=== PATIENT | female | born 1955 | race Caucasian/White ===

== ENCOUNTER → 2019-10-07 12:40 | Outpatient (CLI) | payer OTHER, SELFPAY ==
[2019-10-07 13:49] LABS: Color, Urine Yellow (Yellow); Glucose, Dipstick Normal (Normal); Ketone-Dipstick Negative (Negative); Leukocyte Esterase-Dipstick Negative /ul (Negative); Nitrite-Dipstick Negative (Negative); Occult Blood-Urine Negative /ul (Negative); Protein-Dipstick Negative (Negative); Urine Bilirubin Dipstick Negative (Negative); Urine Clarity Clear (Clear); Urine Urobilinogen Normal (Normal)
[2019-10-07 14:07] LABS: Albumin, Serum 3.6 g/dL (3.2-5.0); BUN 14 mg/dL (7-18); BUN/Creat Ratio 11.4 RATIO (10-20); Calcium,Total 9.3 mg/dL (8.5-10.1); Chloride 96 mmol/L (98-107); Cholesterol 212 mg/dL (200); Creatinine, Serum 1.23 mg/dL (0.55-1.02); EST Glomerular Filtration Rate 47 mL/min (>60); Est Glom Filt Rate - Afr Amer 57 mL/min (>60); Glucose 93 mg/dL (74-106); High Density Lipoprotein 40 mg/dL; Magnesium 2.5 mg/dL (1.6-2.6); Phosphorus 2.3 mg/dL (2.5-4.9); Potassium 3.3 mmol/L (3.5-5.1); Sodium Level 137 mmol/L (136-145); Triglycerides 317 mg/dL; Very Low Density Lipoprotein 63 mg/dL (5-40)
== END ==
PROVIDERS: PCP Family Medicine; Referring Provider Internal Medicine Nephrology; Visit Provider Internal Medicine Nephrology
DX: N18.3 Chronic kidney disease, stage 3 (moderate) (principal); E83.42 Hypomagnesemia
CPT/HCPCS: 36415; 80061; 80069; 81002; 83735

== ENCOUNTER → 2019-10-11 10:00 | Outpatient (CLI) | payer OTHER, SELFPAY ==
[2019-10-11 10:56] LABS: (24 HR) Urine Calcium 191.7 mg/24 HR (42.0-353.0); 24HR UR TOTAL VOLUME 2700 ml; Calcium Urine pH Range 2; Urine Calcium (Random) 7.1 (Not Estab.)
== END ==
PROVIDERS: PCP Family Medicine; Referring Provider Internal Medicine Nephrology; Visit Provider Internal Medicine Nephrology
DX: N18.3 Chronic kidney disease, stage 3 (moderate) (principal); E83.42 Hypomagnesemia
CPT/HCPCS: 81050; 82340; 83735

== ENCOUNTER → 2019-10-12 10:02 | Outpatient (CLI) | payer OTHER, SELFPAY ==
[2019-10-12 10:29] LABS: 24Hr.Lytes Total Volume 3000 mL; Sodium 24 HR UR 108 mmol/24h (40-220); Urine Potassium 5.2 mmol/L (Not Establ.); Urine Potassium/ 24 Hours 15.6 mmol/24h (25-125); Urine Sodium 36 mmol/L (Not Establ.)
== END ==
PROVIDERS: PCP Family Medicine; Visit Provider Internal Medicine Nephrology
DX: N18.3 Chronic kidney disease, stage 3 (moderate) (principal); E83.42 Hypomagnesemia
CPT/HCPCS: 81050; 84133; 84300

== ENCOUNTER → 2019-10-28 09:52 | Outpatient (CLI) | payer OTHER, SELFPAY ==
--- NOTE | 2019-10-28 09:57 | BD_ITS ---
STUDY: DUAL ENERGY X-RAY ABSORPTIOMETRY / DXA REASON FOR EXAM: Female, 63 years old. Age of sweetie- 56. Pat is 85# and 61.5 and quot; a loss of 2.5 and quot; .Takes a thyroid med. Exercises a lot. Grandma has osteo. TECHNIQUE: Bone Mineral Density (BMD) measurements of lumbar spine and bilateral hips were obtained. COMPARISON: None. FINDINGS: Lumbar Spine (L1-L4): g/cm2 (0.669) / T-score (-4.3) / Z-score (-2.8) Findings are suggestive of osteoporosis with a high fracture risk. Left Femur Total: g/cm2 (0.569) / T-score (-3.5) / Z-score (-2.4) Left Femoral Neck: g/cm2 (0.571) / T-score (-3.4) / Z-score (-2.0) Right Femur Total: g/cm2 (0.581) / T-score (-3.4) / Z-score (-2.3) Right Femoral Neck: g/cm2 (0.547) / T-score (-3.5) / Z-score (-2.2) BD/DXA BONE DENS W/VERT FX ASMT IMPRESSION: The patient is considered osteoporotic as outlined below according to World Rafael Organization (WHO) criteria with a high fracture risk. Reference Information: The T-score is the number of standard deviations above or below the standard which is normal for young adults at their peak bone mineral density. The World Health Organization (WHO) interprets the T-scores as follows: Above -1 Normal bone density Between -1 and -2.5 Osteopenia Equal to / or below -2.5 Osteoporosis As a practical clinical guideline, osteopenia may be graded as follows: Mild -1 through -1.5 Moderate -1.6 through -2.0 Severe -2.1 through -2.4 The Z-score is the number of standard deviations above or below age-matched controls. A Z-score of less than -1.5 would be considered abnormal. References: 1. NIH Osteoporosis and Related Bone Diseases http://www.osteo.org 2. International Society for Clinical Densitometry http://www.iscd.org 3. National Osteoporosis Foundation http://www.nof.org Electronically Signed: Zi Holland, at 15:49 EDT , Service support ,
== END ==
PROVIDERS: PCP Family Medicine; Referring Provider Family Medicine; Visit Provider Family Medicine
DX: N18.3 Chronic kidney disease, stage 3 (moderate) (principal); E03.9 Hypothyroidism, unspecified; R93.7 Abnormal findings on diagnostic imaging of other parts of musculoskeletal system
CPT/HCPCS: 77080; 77085

== ENCOUNTER 2020-01-04 06:23 | Day surgery (SDC) | payer OTHER, SELFPAY ==
[2019-12-16 08:16] VITALS: BMI 16.5
--- NOTE | 2019-12-16 08:39 | HP_ITS ---
Intake Vital Signs 12/16/19 Height 5 ft 1.5 in 12/16/19 Weight: 89 lb 12/16/19 BP 111/68 12/16/19 Blood Pressure Location Rt brachial 12/16/19 Position Sitting 12/16/19 Respiration 18 12/16/19 Pulse 71 12/16/19 Pulse Source Monitor 12/16/19 Temp 98.0 F 12/16/19 Temp Source Oral 12/16/19 Pulse Oximetry (%) 98 12/16/19 Oxygen Delivery Method room air Intake Visit Reasons: C-Scope Chief Complaint: Due for c-scope Cash Register Operator Required: No Accompanied by: Is patient in pain?: No Allergies triamcinolone [From Kenalog] Allergy (Intermediate, Verified 12/16/19 08:29) Rash strawberries Allergy (Intermediate, Uncoded 12/16/19 08:29) rash Medications calcium carbonate 600 mg(1,500 mg)-vitamin D3 800 unit chewable tablet 1 tab PO DAILY 12/16/19 [History Confirmed 12/16/19] plgwlsrlgbw-fohuzuubk-Qp-amur 375 mg-150 mg-150 mg-125 mg tablet 2 tab PO DAILY tab 12/16/19 [History] magnesium 250 mg tablet 250 mg PO DAILY 12/16/19 [History Confirmed 12/16/19] potassium chloride 10 mEq tablet,extended release 10 meq PO BID 12/16/19 [History Confirmed 12/16/19] thyroid (pork) 30 mg tablet 30 mg PO .qod tab 12/16/19 [History Confirmed 12/16/19] thyroid (pork) 60 mg tablet 60 mg PO .qod tab 12/16/19 [History Confirmed 12/16/19] [facility] Medical History (Updated 12/16/19 @ 08:[address] Humble Cruz MD) Personal history of colonic polyps (Acute) Carpal tunnel syndrome (Acute) Hypothyroidism (Acute) Chronic renal disease, stage 3, moderately decreased glomerular filtration rate (GFR) between 30-59 mL/min/1.73 square meter (Chronic) Surgical History (Updated 12/16/19 @ 08:03 by Nellie Castillo) history bilateral carpal tunnel surgery (Acute) Family History (Updated 12/16/19 @ 08:04 by Nellie Castillo) Mother Heart disease Hypertension Diabetes Father CVA (cerebral vascular accident) Diabetes Grandmother Arthritis Heart disease Uncle Cancer liver cancer Aunt Breast cancer Cancer ovarian cancer Social History (Updated 12/16/19 @ 08:[address] Humble Cruz MD) Smoking Status: Never smoker alcohol intake: never substance use type: does not use HPI HPI HPI: LUIS FORBES, is a 64 F who presents to the office today for HPI HPI Surgical H&P: Yes HPI: LUIS FORBES, is a 64 F who presents to the office today for surgical consultation regarding a colonoscopy. The patient is referred by her primary care physician Dr. Sade Monsalve. A written copy of my surgical consult recommendations will be returned to her. The patient's most recent colonoscopy was performed at [facility] on June 05, 2017. Tubular adenoma was resected at 70 cm. Tubular adenoma from the cecum. Tubulovillous adenoma at 45 cm. It was recommended the patient that she have a follow-up scope in 3 years. In the meantime however she was seen by nephrology. They are concerned about her stage III renal insufficiency. They are concerned that there may be a correlation with her bowel disease and kidney disease. They are requesting that she pursue the colonoscopy at this time. ROS General General: No weight change, appetite, fatigue, colon cancer, breast cancer or weakness HEENT HEENT: No difficulty swallowing, eye injury, eye surgery, swollen glands or hoarseness Endo Endocrine: Yes thyroid disease; no diabetes mellitus, thyroid cancer, Hair loss, heat intolerance or cold intolerance Skin Skin: No rash or changing moles Breast Breast: No left breast lump, right breast lump, nipple discharge, breast pain, abnormal mammogram, abnormal US or breast enlargement Musc Musculoskeletal: No back problems, arthritis, rheumatoid arthritis, gout or joint pain Cardio Cardiovascular: No murmur, pacemaker, heart disease, atrial fibrillation, high blood pressure, heart attack, heart stent, palpitations, shortness of breat with exertion or chest pain Psych Psychiatric: No depression, anxiety or hearing voices Resp Respiratory: No shortness of breath, No sleep apnea, No cough, No COPD, No asthma, No emphysema, No wheezing Gastro Gastrointestinal: No abdominal pain, No nausea or vomiting, No diarrhea, No constipation, No blood in stool, No acid reflux, Yes hemorrhoids, No ulcers, No gallbladder problem, No black,tarry stools Nabeel Hematologic: No blood thinners, No blood disorders, No bleeding, No anemia, No blood clots Neuro Neurologic: No system reviewed and no additional complaints, except as docu, No as per HPI, No abnormal walking, No abnormal hearing, No abnormal movements, No abnormal speech, No behavioral changes, No burning sensations, No confusion, No seizure-like activity, No unsteadiness, No dizziness, No localized weakness, No frequent falls, No headache(s), No lack of coordination, No loss of vision, No memory loss, No numbness, No other visual disturbances, No radiating pain, No restless legs, No sensory deficit, No fainting, No tingling, No tremor(s), No weakness, No other Exam Const General: cooperative, healthy appearing, comfortable Nutritional Appearance: underweight Orientation: alert, awake, oriented x3 HENMT Head: normal to inspection Eyes General: appearance normal, both eyes and all related structures Neck Neck: normal visual inspection Chest Breast Palpation: No nipple discharge Resp Effort & Inspection: normal respiratory effort Auscultation: clear to auscultation bilaterally Cardio Rate: regular rate Rhythm: regular rhythm Heart Sounds: no murmurs GI Palpation: soft, no hepatosplenomegaly Auscultation: normal bowel sounds Skin General: no rashes or lesions noted Neuro Cognition: normal cognition Extrem General: calf tenderness Psych Affect: normal affect Assessment & Plan Problems 1. Personal history of colonic polyps Z86.010 Plan 64-year-old female with a personal history of tubular adenomas x2 and a tubulovillous adenoma of the sigmoid. I recommend a colonoscopy with possible biopsy or polypectomy as indicated. She has stage III renal insufficiency and there is some concern by nephrology that the bowel and renal disease are connected. Her most recent colonoscopy was May 2017 however nephrology is requesting a updated exam. It is of note that she weighs 89 pounds with a BMI of 16.5. I anticipate using monitored anesthesia care. Humble Cruz M.D., F.A.C.S. Orders Orders: Colonoscopy Today Coding Level of Care Code 66150 Diagnoses Personal history of colonic polyps Z86.010 12/16/19 0859 <Electronically signed by Humble gasca MD> Date _ Humble Cruz MD
[2020-01-04] VITALS (7 sets, daily range): BP systolic 91–101; BP diastolic 54–68; PULSE 57–63; RESP 15–16; TEMP 36.1–36.4; O2SAT 98–100; BMI 15.3
[2020-01-04] MEDS: Lactated Ringers 1,000 ML 100 ML IV (07:03)
--- NOTE | 2020-01-04 07:08 | PCM.HP.BLA ---
Problem List (1) Personal history of colonic polyps Status: Acute History and Physical Date of Admission: 01/04/20 Intake Visit Reasons: C-Scope Chief Complaint: Due for c-scope Principal Clerk Required: No Accompanied by: Is patient in pain?: No Allergies triamcinolone [From Kenalog] Allergy (Intermediate, Verified 12/16/19 08:29) Rash strawberries Allergy (Intermediate, Uncoded 12/16/19 08:29) rash Medications calcium carbonate 600 mg(1,500 mg)-vitamin D3 800 unit chewable tablet 1 tab PO DAILY 12/16/19 [History Confirmed 12/16/19] gmuuabggkmw-luqbblpbo-Ts-amur 375 mg-150 mg-150 mg-125 mg tablet 2 tab PO DAILY tab 12/16/19 [History] magnesium 250 mg tablet 250 mg PO DAILY 12/16/19 [History Confirmed 12/16/19] potassium chloride 10 mEq tablet,extended release 10 meq PO BID 12/16/19 [History Confirmed 12/16/19] thyroid (pork) 30 mg tablet 30 mg PO .qod tab 12/16/19 [History Confirmed 12/16/19] thyroid (pork) 60 mg tablet 60 mg PO .qod tab 12/16/19 [History Confirmed 12/16/19] PFSH Medical History (Updated 12/16/19 @ 08:[address] Humble Cruz MD) Personal history of colonic polyps (Acute) Carpal tunnel syndrome (Acute) Hypothyroidism (Acute) Chronic renal disease, stage 3, moderately decreased glomerular filtration rate (GFR) between 30-59 mL/min/1.73 square meter (Chronic) Surgical History (Updated 12/16/19 @ 08:03 by Nellie Castillo) history bilateral carpal tunnel surgery (Acute) Family History (Updated 12/16/19 @ 08:04 by Nellie Castillo) Mother Heart disease Hypertension Diabetes Father CVA (cerebral vascular accident) Diabetes Grandmother Arthritis Heart disease Uncle Cancer liver cancer Aunt Breast cancer Cancer ovarian cancer Social History (Updated 12/16/19 @ 08:[address] Humble Cruz MD) Smoking Status: Never smoker alcohol intake: never substance use type: does not use HPI HPI HPI: LUIS FORBES, is a 64 F who presents to the office today for HPI HPI Surgical H&P: Yes HPI: LUIS FORBES, is a 64 F who presents to the office today for surgical consultation regarding a colonoscopy. The patient is referred by her primary care physician Dr. Sade Monsalve. A written copy of my surgical consult recommendations will be returned to her. The patient's most recent colonoscopy was performed at [facility] on June 05, 2017. Tubular adenoma was resected at 70 cm. Tubular adenoma from the cecum. Tubulovillous adenoma at 45 cm. It was recommended the patient that she have a follow-up scope in 3 years. In the meantime however she was seen by nephrology. They are concerned about her stage III renal insufficiency. They are concerned that there may be a correlation with her bowel disease and kidney disease. They are requesting that she pursue the colonoscopy at this time. ROS General General: No weight change, appetite, fatigue, colon cancer, breast cancer or weakness HEENT HEENT: No difficulty swallowing, eye injury, eye surgery, swollen glands or hoarseness Endo Endocrine: Yes thyroid disease; no diabetes mellitus, thyroid cancer, Hair loss, heat intolerance or cold intolerance Skin Skin: No rash or changing moles Breast Breast: No left breast lump, right breast lump, nipple discharge, breast pain, abnormal mammogram, abnormal US or breast enlargement Musc Musculoskeletal: No back problems, arthritis, rheumatoid arthritis, gout or joint pain Cardio Cardiovascular: No murmur, pacemaker, heart disease, atrial fibrillation, high blood pressure, heart attack, heart stent, palpitations, shortness of breat with exertion or chest pain Psych Psychiatric: No depression, anxiety or hearing voices Resp Respiratory: No shortness of breath, No sleep apnea, No cough, No COPD, No asthma, No emphysema, No wheezing Gastro Gastrointestinal: No abdominal pain, No nausea or vomiting, No diarrhea, No constipation, No blood in stool, No acid reflux, Yes hemorrhoids, No ulcers, No gallbladder problem, No black,tarry stools Nabeel Hematologic: No blood thinners, No blood disorders, No bleeding, No anemia, No blood clots Neuro Neurologic: No system reviewed and no additional complaints, except as docu, No as per HPI, No abnormal walking, No abnormal hearing, No abnormal movements, No abnormal speech, No behavioral changes, No burning sensations, No confusion, No seizure-like activity, No unsteadiness, No dizziness, No localized weakness, No frequent falls, No headache(s), No lack of coordination, No loss of vision, No memory loss, No numbness, No other visual disturbances, No radiating pain, No restless legs, No sensory deficit, No fainting, No tingling, No tremor(s), No weakness, No other Exam Const General: cooperative, healthy appearing, comfortable Nutritional Appearance: underweight Orientation: alert, awake, oriented x3 HENMT Head: normal to inspection Eyes General: appearance normal, both eyes and all related structures Neck Neck: normal visual inspection Chest Breast Palpation: No nipple discharge Resp Effort & Inspection: normal respiratory effort Auscultation: clear to auscultation bilaterally Cardio Rate: regular rate Rhythm: regular rhythm Heart Sounds: no murmurs GI Palpation: soft, no hepatosplenomegaly Auscultation: normal bowel sounds Skin General: no rashes or lesions noted Neuro Cognition: normal cognition Extrem General: calf tenderness Psych Affect: normal affect Assessment & Plan Problems 1. Personal history of colonic polyps Z86.010 Plan 64-year-old female with a personal history of tubular adenomas x2 and a tubulovillous adenoma of the sigmoid. I recommend a colonoscopy with possible biopsy or polypectomy as indicated. She has stage III renal insufficiency and there is some concern by nephrology that the bowel and renal disease are connected. Her most recent colonoscopy was May 2017 however nephrology is requesting a updated exam. It is of note that she weighs 89 pounds with a BMI of 16.5. I anticipate using monitored anesthesia care. Humble Cruz M.D., F.A.C.S. Orders Orders: Colonoscopy Today Coding Level of Care Code 12285 Diagnoses Personal history of colonic polyps Z86.010 The patient presents during the COVID-19 pandemic. She is aware of the increased risk. She is aware that the [facility] suggest a low local incidence. I have re-examined the patient. There are no clinical changes since date of exam.
--- NOTE | 2020-01-04 09:30 | OP.COLON_ITS ---
Patient Name: Heidi Boston Procedure Date: 01/04/2020 7:32 AM Date of : 1955 Age: 64 Procedure: Colonoscopy Indications: High risk colon cancer surveillance: Personal history of colonic polyps Providers: Humble Cruz MD Medicines: See the Anesthesia note for documentation of the administered medications Patient Profile: Last Colonoscopy: May 2017. Complications: No immediate complications. Procedure: Pre-Anesthesia Assessment: - Prior to the procedure, a History and Physical was performed, and patient medications and allergies were reviewed. The patient's tolerance of previous anesthesia was also reviewed. The risks and benefits of the procedure and the sedation options and risks were discussed with the patient. All questions were answered, and informed consent was obtained. Prior Anticoagulants: The patient has taken no previous anticoagulant or antiplatelet agents. ASA Grade Assessment: II - A patient with mild systemic disease. After reviewing the risks and benefits, the patient was deemed in satisfactory condition to undergo the procedure. After I obtained informed consent, the scope was passed under direct vision. Throughout the procedure, the patient's blood pressure, pulse, and oxygen saturations were monitored continuously. The colonoscope was introduced through the anus and advanced to the cecum, identified by appendiceal orifice and ileocecal valve. The colonoscopy was performed without difficulty. The patient tolerated the procedure well. The quality of the bowel preparation was good. The ileocecal valve and the appendiceal orifice were photographed. Scope In: 7:42:02 AM Scope Withdrawal Time 0 hours 7 minutes 54 seconds Scope Out: 7:55:54 AM Total Procedure Duration Time 0 hours 13 minutes 52 seconds Findings: Hemorrhoids were found on perianal exam. A diffuse area of moderate melanosis was found in the entire colon. The exam was otherwise without abnormality. Impression: - Hemorrhoids found on perianal exam. - Melanosis in the colon. - The examination was otherwise normal. - No specimens collected. Recommendation: - Discharge patient to home. - Resume previous diet. - Continue present medications. - Repeat colonoscopy in 5 years for surveillance. Procedure Code(s): --- Professional --- 45410, Colonoscopy, flexible; diagnostic, including collection of specimen(s) by brushing or washing, when performed (separate procedure) Diagnosis Code(s): --- Professional --- Z86.010, Personal history of colonic polyps K64.9, Unspecified hemorrhoids K63.89, Other specified diseases of intestine CPT copyright 2017 [employer]. All rights reserved. The codes documented in this report are preliminary and upon hadoop developer review may be revised to meet current compliance requirements. Humble Cruz MD 01/04/2020 8:01:04 AM This report has been signed electronically. Number of Addenda: 0 Note Initiated On: 01/04/2020 7:32 AM
--- NOTE | 2020-01-04 09:31 | OP.CCLET_ITS ---
01/04/2020 Sade Monsalve [facility] [address] [place] [address] Re : Colonoscopy procedure for Heidi Boston Dear Dr. Monsalve This procedure was performed on Saturday, January 04, 2020. My impressions and recommendations are as follows: Impressions : - Hemorrhoids found on perianal exam. - Melanosis in the colon. - The examination was otherwise normal. - No specimens collected. Recommendations : - Discharge patient to home. - Resume previous diet. - Continue present medications. - Repeat colonoscopy in 5 years for surveillance. My findings are described in the full procedure note, which is enclosed. If I can be of further assistance, please feel free to contact me at Doctor phone number(s): Work: . Sincerely, Humble Cruz MD 01/04/2020 8:01:04 AM This report has been signed electronically.
== END 2020-01-04 08:43 | disposition home or self-care (01) ==
LOC: EN 06:24 → AC 06:25
PROVIDERS: PCP Family Medicine; Referring Provider Family Medicine; Visit Provider Surgery
PROC: 0DJD8ZZ Inspection of Lower Intestinal Tract, Via Natural or Artificial Opening Endoscopic (ICD-10-PCS; CPT 45378; principal; 2020-01-04 07:25)
DX: Z12.11 Encounter for screening for malignant neoplasm of colon (principal); Z86.010 Personal history of colon polyps; N18.3 Chronic kidney disease, stage 3 (moderate); K64.9 Unspecified hemorrhoids; K63.89 Other specified diseases of intestine; Z11.59 Encounter for screening for other viral diseases
CPT/HCPCS: 45378; 87635; G2023; J7120; J2405; U0004

== ENCOUNTER → 2020-01-10 09:22 | Outpatient (CLI) | payer OTHER, SELFPAY ==
[2020-01-04 06:51] VITALS: BMI 15.3
[2020-01-10 09:30] LABS: Bacteria 0 SEEN /hpf (None Seen); Mucous, Urine 0 SEEN /hpf (<or=2+); Red Blood Cells-Urine 0 SEEN /hpf (0-5); Squamous Epithelial Cells - UA 0 SEEN /hpf (5-10); White Blood Cells 0 SEEN /hpf (0-5)
[2020-01-10 10:21] LABS: Color, Urine Yellow (Yellow); Glucose, Dipstick Normal (Normal); Ketone-Dipstick Negative (Negative); Leukocyte Esterase-Dipstick Negative /ul (Negative); Nitrite-Dipstick Negative (Negative); Occult Blood-Urine Negative /ul (Negative); Protein-Dipstick Negative (Negative); Urine Bilirubin Dipstick Negative (Negative); Urine Clarity Clear (Clear); Urine Urobilinogen Normal (Normal)
[2020-01-10 10:33] LABS: Protein, Urine (Random) 7.5 mg/dL (<11.9); Protein:Creat Ratio 573 mg/g CRE (0-200)
[2020-01-10 11:05] LABS: 24 Hour Urine Protein 435.6 mg/24HR (<150 MG/24HR); 24HR. UA Prot. Total Volume 3325 mL; 24Hr.Lytes Total Volume 3325 mL; Anion Gap 6 (5-15); BUN 12 mg/dL (7-18); BUN/Creat Ratio 9.8 RATIO (10-20); Chloride 91 mmol/L (98-107); Creatinine, Serum 1.23 mg/dL (0.55-1.02); EST Glomerular Filtration Rate 47 mL/min (>60); Est Glom Filt Rate - Afr Amer 57 mL/min (>60); Glucose 90 mg/dL (74-106); Phosphorus 2.5 mg/dL (2.5-4.9); Potassium 3.1 mmol/L (3.5-5.1); Sodium Level 136 mmol/L (136-145); Urine Chloride 10 mmol/L (Not Establ.); Urine Chloride / 24 Hours 33 mmol/24h (110-250); Urine Potassium/ 24 Hours 39.9 mmol/24h (25-125); Urine Protein (24 Hour) 13.1 mg/dL (<11.9)
[2020-01-10 11:08] LABS: PTHIN 51.4 pg/mL (18.4-80.1)
[2020-01-10 11:30] LABS: 24HR UR TOTAL VOLUME 3325 ml; Calcium Urine pH Range 1; Urine Calcium (Random) < 5.0 (Not Estab.)
[2020-01-11 10:53] LABS: Creat.Clear Total Volume 3325 mL; Creatinine Clearance 31 ml/min (100-200); Creatinine Serum Creat 1.2 mg/dL (0.6-1.0); Creatinine Urine 16.3 mg/dL (NO RANGE EST.); EST Glomerular Filtration Rate 48 mL/min (>60); Est Glom Filt Rate - Afr Amer 48 mL/min (>60)
== END ==
PROVIDERS: PCP Family Medicine; Visit Provider Internal Medicine
DX: N18.3 Chronic kidney disease, stage 3 (moderate) (principal); E55.9 Vitamin D deficiency, unspecified
CPT/HCPCS: 36415; 80048; 81001; 81050; 82306; 82340; 82436; 82570; 82575; 83970; 84100; 84133; 84156

== ENCOUNTER → 2020-01-18 10:47 | Outpatient (CLI) | payer OTHER, SELFPAY ==
[2020-01-04 06:51] VITALS: BMI 15.3
[2020-01-18 12:36] LABS: Anion Gap 5 (5-15); BUN 11 mg/dL (7-18); BUN/Creat Ratio 9.5 RATIO (10-20); Calcium,Total 9.6 mg/dL (8.5-10.1); Chloride 99 mmol/L (98-107); Creatinine, Serum 1.16 mg/dL (0.55-1.02); EST Glomerular Filtration Rate 50 mL/min (>60); Est Glom Filt Rate - Afr Amer 61 mL/min (>60); Glucose 83 mg/dL (74-106); Potassium 3.9 mmol/L (3.5-5.1); Sodium Level 137 mmol/L (136-145)
== END ==
PROVIDERS: PCP Family Medicine; Referring Provider Internal Medicine; Visit Provider Internal Medicine
DX: E87.6 Hypokalemia (principal)
CPT/HCPCS: 36415; 80048

== ENCOUNTER → 2020-05-15 13:32 | Outpatient (CLI) | payer OTHER, SELFPAY ==
[2020-01-04 06:51] VITALS: BMI 15.3
[2020-05-15 13:38] LABS: Bacteria 0 SEEN /hpf (None Seen); Mucous, Urine 0 SEEN /hpf (<or=2+); Red Blood Cells-Urine 0 SEEN /hpf (0-5); Squamous Epithelial Cells - UA 0 SEEN /hpf (5-10); White Blood Cells 0 SEEN /hpf (0-5)
[2020-05-15 14:57] LABS: Color, Urine Yellow (Yellow); Glucose, Dipstick Normal (Normal); Ketone-Dipstick Negative (Negative); Leukocyte Esterase-Dipstick Negative /ul (Negative); Nitrite-Dipstick Negative (Negative); Occult Blood-Urine Negative /ul (Negative); Protein-Dipstick Negative (Negative); Urine Bilirubin Dipstick Negative (Negative); Urine Clarity Clear (Clear); Urine Urobilinogen Normal (Normal)
[2020-05-15 15:08] LABS: Protein, Urine (Random) 22.3 mg/dL (<11.9); Protein:Creat Ratio 331 mg/g CRE (0-200)
[2020-05-15 15:10] LABS: Anion Gap 2 (5-15); BUN 14 mg/dL (7-18); Calcium,Total 9.3 mg/dL (8.5-10.1); Chloride 101 mmol/L (98-107); Creatinine, Serum 1.27 mg/dL (0.55-1.02); EST Glomerular Filtration Rate 45 mL/min (>60); Est Glom Filt Rate - Afr Amer 55 mL/min (>60); Glucose 111 mg/dL (74-106); Magnesium 2.4 mg/dL (1.6-2.6); Phosphorus 2.3 mg/dL (2.5-4.9); Potassium 4.2 mmol/L (3.5-5.1); Sodium Level 137 mmol/L (136-145)
[2020-05-17 08:05] LABS: PTHIN 110.1 pg/mL (18.4-80.1)
[2020-05-17 08:15] LABS: Vitamin D,25 Hydroxy 43.4 ng/mL
== END ==
PROVIDERS: PCP Family Medicine; Referring Provider Internal Medicine; Visit Provider Internal Medicine
DX: N18.30 Chronic kidney disease, stage 3 unspecified (principal); E55.9 Vitamin D deficiency, unspecified; R80.9 Proteinuria, unspecified
CPT/HCPCS: 36415; 80048; 81001; 82306; 82570; 83735; 83970; 84100; 84156; 84165; 84166

== ENCOUNTER → 2020-11-15 11:34 | Outpatient (CLI) | payer OTHER, SELFPAY ==
[2020-01-04 06:51] VITALS: BMI 15.3
[2020-11-15 12:47] LABS: PTHIN 26.8 pg/mL (18.4-80.1)
[2020-11-15 13:03] LABS: Protein, Urine (Random) 26.6 mg/dL (<11.9); Protein:Creat Ratio 1204 mg/g CRE (0-200)
[2020-11-15 13:08] LABS: BUN 22 mg/dL (7-18); BUN/Creat Ratio 10.3 RATIO (10-20); Calcium,Total 12.6 mg/dL (8.5-10.1); Carbon Dioxide > 45.0 mmol/L (21.0-32.0); Chloride 82 mmol/L (98-107); Creatinine, Serum 2.14 mg/dL (0.55-1.02); EST Glomerular Filtration Rate 25 mL/min (>60); Est Glom Filt Rate - Afr Amer 30 mL/min (>60); Glucose 84 mg/dL (74-106); Magnesium 2.6 mg/dL (1.6-2.6); Phosphorus 2.7 mg/dL (2.5-4.9); Potassium 3.4 mmol/L (3.5-5.1); Sodium Level 132 mmol/L (136-145)
[2020-11-15 13:09] LABS: Color, Urine Straw (Yellow); Glucose, Dipstick Normal (Normal); Ketone-Dipstick Negative (Negative); Leukocyte Esterase-Dipstick 25 /ul (Negative); Nitrite-Dipstick Negative (Negative); Occult Blood-Urine Negative /ul (Negative); Protein-Dipstick Negative (Negative); Urine Bilirubin Dipstick Negative (Negative); Urine Clarity Clear (Clear); Urine Urobilinogen Normal (Normal)
[2020-11-17 16:08] LABS: PROELU- Alpha-1-Globulin,Ur 6.7 % (.); PROELU- Alpha-2-Globulin,Ur 24.1 % (.); PROELU- Beta Globulin, Ur 31.2 % (.); Total Protein, Ur 11.4 mg/dL (Not Estab.)
== END ==
PROVIDERS: PCP Family Medicine; Visit Provider Internal Medicine
DX: N18.30 Chronic kidney disease, stage 3 unspecified (principal); E83.42 Hypomagnesemia
CPT/HCPCS: 36415; 80048; 81002; 82570; 83735; 83970; 84100; 84156; 84166

== ENCOUNTER 2020-11-16 15:33 | Observation (INO) | payer OTHER, SELFPAY ==
[2020-01-04 06:51] VITALS: BMI 15.3
[2020-11-16 15:35] VITALS: BP 108/51; PULSE 77; RESP 16; TEMP 36.3; O2SAT 100; BMI 13.7
--- NOTE | 2020-11-16 16:36 | EKG12_ITS ---
Test Reason : ABNORMAL LABS Blood Pressure : / mmHG Vent. Rate : 069 BPM Atrial Rate : 069 BPM P-R Int : 200 ms QRS Dur : 090 ms QT Int : 392 ms P-R-T Axes : 088 008 068 degrees QTc Int : 420 ms Normal sinus rhythm Normal ECG Confirmed by MARY GUERIN, NGUYEN ([id number]), copy editor TRELL MONSON ([id number]) on 11/20/2020 2:17:07 PM Referred By: VLADISLAV Confirmed By:NGUYEN HERNANDEZ MD
--- NOTE | 2020-11-16 17:09 | ED.DCSUM_ITS ---
- ER Visit Summary Date of Service: 11/16/20 Chief Complaint: Abnormal labs History of Present Illness: The patient is a 64 F who presents with abnormal labs that were noticed today. Patient had labs drawn yesterday. Patient states her bacteriologist industrial called her today and stated that her calcium and CO2 were very high. Patient states that she was told she needed to come to the emergency department for fluids. Patient denies any symptoms. Patient denies any chest pain or palpitations. Patient denies any shortness of breath cough. Patient denies any nausea or vomiting. Patient denies any myalgias or weakness. Physical Examination: Vital signs are stable. Patient is afebrile. Patient is in no acute distress. Oral mucosa is pink and moist. Neck is supple. Trachea is midline. There is no JVD noted. Heart was regular rate and rhythm. Lungs are clear and equal bilaterally. Abdomen is soft. Bowel sounds are normal. There is no tenderness. There is no rebound or guarding noted. Skin is warm dry. Cranial nerves II through XII are intact. There are no focal motor or sensory deficits noted. Extremities are intact. There is no calf tenderness or edema. Test Results: CBC shows a slight anemia with a hemoglobin of 11.6 hematocrit 34.6. Basic metabolic profile showed a sodium 131, potassium 2.7, chloride 86, CO2 greater than 45, BUN 23, creatinine 2.07, and calcium 12.4. Creatinine was elevated from previous results. Urinalysis does not show any evidence of urinary tract infection. Emergency Department Course and Treatment: Patient was given IV fluids. Patient was given a dose of oral potassium and IV potassium. Case was discussed with the hospitalist. She will admit the patient to her service. Patient and family understood and were agreeable with plan. All questions were answered. Disposition: Admit to hospital Impression: 1. Acute kidney injury 2. Hypokalemia 3. Hypercalcemia This note was generated with [employer] dictation software. It may contain incorrect words, spelling, and punctuation that were not noted in review of the chart prior to signing ED Disposition - Plan for ED Patient: [facility] Diagnosis: Acute kidney injury, Hypokalemia, Hypercalcemia
[2020-11-16 17:26] LABS: Bacteria 0 SEEN /hpf (None Seen); Mucous, Urine 0 SEEN /hpf (<or=2+); Red Blood Cells-Urine 0 SEEN /hpf (0-5); Squamous Epithelial Cells - UA 0 SEEN /hpf (5-10); White Blood Cells 0 SEEN /hpf (0-5)
[2020-11-16 17:30] LABS: Absolute Lymphocyte Count 1.14 X10^3/uL (0.83-4.51); Absolute Neutrophil Count 2.6 X10^3/uL (2.0-7.7); Basophil# 0.03 X10^3/uL; Basophil% 0.7 % (0-1); Eosinophil# 0.11 X10^3/uL; Eosinophils% 2.5 % (0-5); Hematocrit 34.6 % (37-47); Hemoglobin 11.6 g/dL (12.0-15.0); Lymphocyte # 1.14 X10^3/ul (4.0); Mean Corp Hgb Conc 33.5 g/dL (32-36); Mean Corpuscular Hgb 32.2 pg (27.0-32.0); Mean Corpuscular Volume 96.1 fL (81-99); Mean Platelet Vol. 10.1 fl (6.2-12.0); Monocyte# 0.48 X10^3/uL; Monocyte% 10.9 % (0-10); NRBC Flagged by Analyzer 0 % (0-5); Neutrophil # 2.62 X10^3/uL (2.7-7.7); Neutrophil % 59.7 % (47-70); Platelet Count 213 K/mm3 (150-450); RBC Distribution Width CV 13.2 % (11.6-14.6); RBC Distribution Width SD 46.1 fl (35.1-43.9); White Blood Count 4.4 K/mm3 (4.4-11.0)
[2020-11-16 17:33] LABS: Color, Urine Straw (Yellow); Glucose, Dipstick Normal (Normal); Ketone-Dipstick Negative (Negative); Leukocyte Esterase-Dipstick Negative /ul (Negative); Nitrite-Dipstick Negative (Negative); Occult Blood-Urine Negative /ul (Negative); Protein-Dipstick Negative (Negative); Urine Bilirubin Dipstick Negative (Negative); Urine Clarity Clear (Clear); Urine Urobilinogen Normal (Normal)
[2020-11-16 18:12] LABS: BUN 23 mg/dL (7-18); BUN/Creat Ratio 11.1 RATIO (10-20); Calcium,Total 12.4 mg/dL (8.5-10.1); Carbon Dioxide > 45.0 mmol/L (21.0-32.0); Chloride 86 mmol/L (98-107); Creatinine, Serum 2.07 mg/dL (0.55-1.02); EST Glomerular Filtration Rate 26 mL/min (>60); Est Glom Filt Rate - Afr Amer 31 mL/min (>60); Estimated Creatinine Clearance 15.94 ml/min; Glucose 81 mg/dL (74-106); Potassium 2.7 mmol/L (3.5-5.1); Sodium Level 131 mmol/L (136-145)
--- NOTE | 2020-11-16 18:43 | HP.PCM_ITS ---
Problem List (1) NATHANIEL (acute kidney injury) Status: Acute (2) Electrolyte disturbance Status: Acute (3) Hypothyroidism Status: Chronic Qualifiers: Hypothyroidism type: unspecified Qualified Code(s): E03.9 - Hypothyroidism, unspecified (4) Severe protein-calorie malnutrition Status: Chronic (5) Chronic kidney disease, stage III (moderate) Status: Chronic Qualifiers: Chronic kidney disease stage 3 subtype: unspecified whether 3a or 3b Qualified Code(s): N18.30 - Chronic kidney disease, stage 3 unspecified History of Present Illness Date of Admission: 11/16/20 Chief Complaint: Abnormal labs The patient is a 64 y/o F w/ PMHx: CKD stage III, Hypothyroidism, Severe Protein-Calorie Malnutrition who presents to the [facility] ED on 11/16/20 with history of abnormal outpatient labs, specifically CO2 and calcium with recommendation per her PCP to be evaluated in the ED. patient denies any recent specific fever, chills, nausea, emesis, abdominal pain, chest pain, dyspnea. She does note routinely being very fatigued but this is unchanged. She does report that she has been losing weight in July. She had been drinking ensures but has lessened her intake of these per discussion with her spouse as well. Her spouse reports she is an extremely picky eater and always has been. He notes she is always been thin but never as thin as currently. She notes that recent labs done the day prior to ED presentation were for routine work-up per her hyperion essbase developer. Work-up in the ED included T 97.3, heart rate 77, BP 108/51, respiratory rate 16, 100% on room air, CBC with WBC 4.4, hemoglobin 11.6, platelet 213 without marked shift, BMP with sodium 131, potassium 2.7, chloride 86, carbon oxide greater than 45, BUN/creatinine 23/2.07, calcium 12.4, urinalysis not marked appearing. Past Medical History Past Medical History (Chronic Problems): Chronic Problems (Last Updated 12/16/19 @ 08:02 by Nellie Castillo) Hypothyroidism (Chronic) Severe protein-calorie malnutrition (Chronic) Chronic kidney disease, stage III (moderate) (Chronic) Medical History: Medical History (Last Updated 12/16/19 @ 08:02 by Nellie Castillo) Personal history of colonic polyps (Acute) Z86.010 Carpal tunnel syndrome G56.00 Hypothyroidism E03.9 Chronic renal disease, stage 3, moderately decreased glomerular filtration rate (GFR) between 30-59 mL/min/1.73 square meter N18.3 Allergies chocolate flavor Allergy (Intermediate, Verified 11/16/20 15:37) Mucosal lesions EYELIDS W/ CYSTS AND FILL W/ MUCOUS triamcinolone [From Kenalog] Allergy (Intermediate, Verified 11/16/20 15:37) Rash strawberries Allergy (Intermediate, Uncoded 11/16/20 15:37) rash Home Medications: Ambulatory Orders Medication Instructions Recorded magnesium 250 mg tablet 250 mg PO DAILY 12/16/19 potassium chloride 10 mEq 20 meq PO DAILY 12/16/19 tablet,extended release Alendronate Sodium [Fosamax] 70 mg PO TH@0700 12/28/19 Glucosamine/MSM/Chondroitin A 2 tablet PO BID 11/16/20 [[id number]-YJL Cplt] Potassium Chloride [Klor-Con M10] 10 meq PO DAILY 11/16/20 Thyroid,Pork [[place] Thyroid] 30 mg PO QODAY 11/16/20 Thyroid,Pork [[place] Thyroid] 60 mg PO QODAY 11/16/20 Surgical History: Surgical History (Last Updated 12/16/19 @ 08:03 by Nellie Castillo) history bilateral carpal tunnel surgery Surgical History: - - Colonic polyp resection, bilateral carpal tunnel surgery, tonsillectomy. Psychiatric History: No pertinent psych hx - Patient denies depression or anxiety but upon evaluation does appear to have a significantly flat affect. 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 Lives: Spouse/ Significant Other Smoking Status: Never smoker Tobacco Use: Non-smoker Alcohol: None Drugs: None - *Family History Maternal Family History: Family History (Last Updated 12/16/19 @ 08:04 by Nellie Castillo) Mother Heart disease Hypertension Diabetes Father CVA (cerebral vascular accident) Diabetes Grandmother Arthritis Heart disease Uncle Cancer Aunt Breast cancer Cancer History Items: Diabetes, High Cholesterol, Hypertension Paternal Family History: Family History (Last Updated 12/16/19 @ 08:04 by Nellie Castillo) Mother Heart disease Hypertension Diabetes Father CVA (cerebral vascular accident) Diabetes Grandmother Arthritis Heart disease Uncle Cancer Aunt Breast cancer Cancer History Items: Diabetes, High Cholesterol, Hypertension, Stroke Review of Systems Constitutional: Reports: Anorexia, Malaise, Weakness, Fatigue. Denies: Chills, Fever, Weight Change HEENT: Denies: Head Aches, Sinus Congestion, Sinus Drainage Cardiovascular: Denies: Chest Pain, Palpitations Respiratory: Denies: Cough, Shortness of Breath, Shortness of breath at rest, Shortness of breath upon exertion, Sputum production Gastrointestinal: Denies: Abdominal Pain, Nausea, Vomiting Genitourinary: Denies: Dysuria Musculoskeletal: Reports: Joint Pain. Denies: Joint Tenderness Skin: Denies: Rash, Wounds Neurological: Denies: Numbness, Tingling, Focal weakness Psychiatric: Denies: Anxiety, Depression, Homicidal Ideations, Suicidal Ideations Hematologic/ Lymphatic: Denies: Easy Bruising, Easy Bleeding VTE Information - Inpt Only VTE Present on Admission: No VTE Mechan Device Prophylaxis: SCD's VTE Pharm Prophylaxis ordered?: Yes Patient Problems: Active and Suspected Problems (Last Updated 12/16/19 @ 08:02 by Nellie Castillo) NATHANIEL (acute kidney injury) (Acute) Electrolyte disturbance (Acute) Subjective: Patient seated upright in the ED bed, fatigued appearing, extremely flat affect, no acute complaints. Objective: Physical Examination: General: awake, alert, oriented x 3 and cooperative, seated upright in the ED bed in no apparent distress. Skin: normal color, turgor, no icterus, cyanosis. HEENT: AT/NC, EOMI, PERRLA, dry MM, no carotid bruits or JVD noted. Lungs: Diminished breath sounds, greater bases, moderate effort, no rales, ronchi or wheezing. Heart: Regular rate and rhythm; no gallop, rub audible. Abdomen: soft, thin cachectic habitus, NTTP, ND, normal BS, no HSM. Extremities: no cyanosis, clubbing, or edema. Neurological: patient awake, alert, oriented as noted; cognitive function intact per spouse; pupils equally reactive to light and accomodation; cranial nerves II-XII grossly normal, moving all 4 extremities, no focal deficits, strength preserved. Psychiatric: affect appears extremely flat, do suspect possibly underlying depression, denies any current depression or anxiety feelings. - Physical Exam Vitals/I&O's: Vital Signs Temp Pulse Resp BP Pulse Ox 97.3 F L 77 16 108/51 L 100 11/16/20 15:35 11/16/20 15:35 11/16/20 15:35 11/16/20 15:35 11/16/20 15:35 Oxygen Delivery Method Room Air Weight: 80 lb Body Mass Index (BMI) 13.7 Laboratory Results 11/16/20 15:20: Urine Color Straw, Urine Clarity Clear, Urine pH 8.0, Ur Specific [place] 1.010, Urine Protein Negative, Urine Glucose (UA) Normal, Urine Ketones Negative, Urine Occult Blood Negative, Urine Nitrite Negative, Urine Bilirubin Negative, Urine Urobilinogen Normal, Ur Leukocyte Esterase Negative, Urine RBC 0 SEEN, Urine WBC 0 SEEN, Ur Squamous Epith Cells 0 SEEN, Urine Bacteria 0 SEEN, Urine Mucus 0 SEEN 11/16/20 17:13: WBC 4.4, RBC 3.60 L, Hgb 11.6 L, Hct 34.6 L, MCV 96.1, MCH 32.2 H, MCHC 33.5, RDW Std Deviation 46.1 H, RDW Coeff of Miguelito 13.2, Plt Count 213, MPV 10.1, Immature Gran % (Auto) 0.200, Neut % (Auto) 59.7, Lymph % (Auto) 26.0, [place] % (Auto) 10.9 H, Eos % (Auto) 2.5, Baso % (Auto) 0.7, Absolute Neuts (auto) 2.6, Absolute Lymphs (auto) 1.14, Nucleated RBC % 0 11/16/20 17:13: Sodium 131 L, Potassium 2.7 L*, Chloride 86 L, Carbon Dioxide > 45.0 H*, Anion Gap TNP, BUN 23 H, Creatinine 2.07 H, Estim Creat Clear Calc 15.94, Est GFR (MDRD) Af Amer 31 L, Est GFR (MDRD) Non-Af 26 L, BUN/Creatinine Ratio 11.1, Glucose 81, Calcium 12.4 H Current Medications Sodium Chloride () 1,000 mls @ 1,000 mls/hr IV .Q1H ONE Stop: 11/16/20 19:15 Potassium Chloride () 10 meq in 100 mls @ 100 mls/hr IV BOLUS X1 ONE Stop: 11/16/20 19:19 Assessment/Plan All Active Problems (Last Updated 12/16/19 @ 08:02 by Nellie S Castillo) NATHANIEL (acute kidney injury) (Acute) Electrolyte disturbance (Acute) Personal history of colonic polyps (Acute) The patient is a 64 y/o F w/ PMHx: CKD stage III, Hypothyroidism, Severe P rotein-Calorie Malnutrition who presents to the [facility] ED on 11/16/20 with history of abnormal outpatient labs, specifically CO2 and calcium with recommendation per her PCP to be evaluated in the ED. 1. Acute kidney injury on CKD stage III: Secondary to unclear specific etiology, possibly hypovolemia. Admission BUN/Cr 23/2.07, prior baseline creatinine noted to be 1.2 primarily with last noted lab 11/15/2020 with creatinine 2.14 causing PCP to refer patient for evaluation. Will hydrate, hold nephrotoxic medications and repeat chemistry in AM. Will obtain renal ultrasound as well as FeNa assessment. Will involve patient's hyperion essbase developer given significant electrolyte abnormalities. 2. Hyponatremia, mild: Admission sodium 131, suspect hypovolemic especially given NATHANIEL but as noted we will continue judicious hydration and obtain FeNa to further assess. 3. Hypokalemia: Admission K+ 2.7, magnesium level requested, supplementation given, repeat level in AM. 4. Hypercalcemia: Admission calcium 12.4 but in the setting of acute kidney injury, will obtain ionized calcium and plan repeat CMP in AM. Vitamin D pending. 5. Elevated carbon dioxide: Admission carbon oxide greater than 45, will obtain ABG, will continue treatment as noted above and plan repeat CMP in AM. Pending ABG may need to alter further treatment. 6. Suspected Chronic normocytic anemia: Admission hemoglobin 11.6, MCV 96.1, no comparison, will obtain iron panel, ferritin, vitamin B12 and folic acid levels. 7. Hypothyroidism: Continue home pork thyroid regimen, TSH and free T4 pending. 8. Severe protein calorie malnutrition: Evidenced by significantly reduced BMI, will consult nutrition for education and teaching. 9. DVT prophylaxis: SCDs, heparin. Inpatient E&M: 16693 Init Hosp L3
[2020-11-16] MEDS: Potassium Chloride Oral Tablet 20 MEQ 60 MEQ PO (18:45)
[2020-11-16] MEDS: 0.9% Normal Saline 1,000 ML 1000 ML IV (19:09)
[2020-11-16] MEDS: Potassium Chloride 10mEq/100mL 10 MEQ/100 ML IV.SOLN. 100 MEQ IV BOLUS (19:09)
[2020-11-16 19:14] VITALS: BP 114/67; PULSE 68; RESP 19; TEMP 36.9; O2SAT 100
[2020-11-16 19:38] VITALS: BMI 13.8
[2020-11-16 19:51] VITALS: BMI 13.9
[2020-11-16 20:02] VITALS: BP 111/75; PULSE 71; RESP 16; TEMP 36.8; O2SAT 100
[2020-11-16 20:15] LABS: Magnesium 2.8 mg/dL (1.6-2.6)
[2020-11-16] MEDS: 0.9% Normal Saline 1,000 ML 100 ML IV (20:25)
[2020-11-16 20:31] LABS: Allen Test Positive; Base Excess 15 mmol/L (-2 to +2); Bicarbonate 37.5 mmol/L (22-26); Blood Gas Specimen Type ART; O2 Delivery Device Room Air; PO2 76 mmHG (75-100); SITE L Radial; SO2 96 % (95-99); Total Carbon Dioxide 39 mmol/L; pH 7.51 (7.35-7.45)
[2020-11-16] MEDS: Heparin Injection (Vial) 5,000 UNIT/ML VIAL 5000 UNIT SC (20:38)
[2020-11-16 20:45] VITALS: PULSE 76
[2020-11-16] MEDS: Potassium Chloride Oral Tablet 10 MEQ PO (21:29)
[2020-11-16 22:30] LABS: Creatinine, Urine (random) < 13.00 mg/dL (NO RANGE EST.); Urine Sodium 28 mmol/L (Not Establ.)
[2020-11-17 00:21] VITALS: PULSE 60
[2020-11-17 03:00] VITALS: PULSE 57
[2020-11-17 03:03] VITALS: BP 100/58; PULSE 62; RESP 17; TEMP 36.6; O2SAT 95
[2020-11-17] MEDS: Potassium Chloride Oral Tablet 10 MEQ PO (05:53)
[2020-11-17] MEDS: Thyroid 15 MG Tablet 30 MG PO (05:54)
--- NOTE | 2020-11-17 05:55 | US_ITS ---
INDICATION: NATHANIEL EXAMINATION: US Kidney(s) complete (eg, kidneys and bladder) TECHNIQUE: Vázquez scale and color doppler images were obtained of the kidneys. COMPARISON: None. FINDINGS: RIGHT KIDNEY: Normal in size measuring 10 x 5.2 x 3.8 cm. Normal echogenicity. There is no hydronephrosis. No shadowing calculus or perinephric collection is demonstrated. 1.1 cm simple cyst in the right kidney. LEFT KIDNEY: Normal in size measuring 10.1 x 3.7 x 4.5 cm. Normal echogenicity. There is no hydronephrosis. No focal lesion or perinephric collection is demonstrated. 3 mm nonobstructing stone in left kidney. URINARY BLADDER: No acute abnormality. US/Kidney and Bladder IMPRESSION: No acute abnormalities. 3 mm non-obstructing stone in the left kidney. Electronically Signed: Edis Newby MD at 16:57 EDT Tel , Service support ,
[2020-11-17] MEDS: 0.9% Normal Saline 1,000 ML 100 ML IV (05:56)
[2020-11-17 06:46] LABS: Absolute Lymphocyte Count 1.32 X10^3/uL (0.83-4.51); Absolute Neutrophil Count 1.9 X10^3/uL (2.0-7.7); Basophil# 0.03 X10^3/uL; Basophil% 0.8 % (0-1); Eosinophil# 0.12 X10^3/uL; Eosinophils% 3.2 % (0-5); Hemoglobin 10.8 g/dL (12.0-15.0); Lymphocyte # 1.32 X10^3/ul (4.0); Lymphocyte % 35.3 % (19-41); Mean Corp Hgb Conc 32.7 g/dL (32-36); Mean Corpuscular Volume 97.6 fL (81-99); Mean Platelet Vol. 10.6 fl (6.2-12.0); Monocyte# 0.35 X10^3/uL; Monocyte% 9.4 % (0-10); NRBC Flagged by Analyzer 0 % (0-5); Neutrophil # 1.91 X10^3/uL (2.7-7.7); Platelet Count 203 K/mm3 (150-450); RBC Distribution Width CV 13.1 % (11.6-14.6); RBC Distribution Width SD 46.7 fl (35.1-43.9); Red Blood Count 3.38 M/mm3 (4.2-5.4); White Blood Count 3.7 K/mm3 (4.4-11.0)
[2020-11-17 07:25] LABS: ALB/GLOB Ratio 0.9 RATIO (0.9-2.4); AST(SGOT) 26 U/L (15-37); Alanine Aminotransfer ALT/SGPT 21 U/L (13-56); Albumin, Serum 2.8 g/dL (3.2-5.0); Alkaline Phosphatase 51 U/L (45-117); Anion Gap 1 (5-15); BUN 18 mg/dL (7-18); BUN/Creat Ratio 10.5 RATIO (10-20); Calcium,Total 9.9 mg/dL (8.5-10.1); Chloride 104 mmol/L (98-107); Creatinine, Serum 1.72 mg/dL (0.55-1.02); EST Glomerular Filtration Rate 32 mL/min (>60); Est Glom Filt Rate - Afr Amer 38 mL/min (>60); Estimated Creatinine Clearance 19.77 ml/min; Globulin 3.1 g/dL (2.2-4.2); Glucose 80 mg/dL (74-106); Potassium 3.8 mmol/L (3.5-5.1); Protein, Total 5.9 g/dL (6.4-8.2); Sodium Level 139 mmol/L (136-145)
[2020-11-17 07:50] VITALS: PULSE 62
[2020-11-17 08:43] VITALS: BP 103/55; PULSE 63; RESP 16; TEMP 36.6; O2SAT 97
[2020-11-17] MEDS: Magnesium Chloride 64 MG Delay Rel.Tablet PO (08:48)
[2020-11-17] MEDS: Heparin Injection (Vial) 5,000 UNIT/ML VIAL 5000 UNIT SC (08:48)
--- NOTE | 2020-11-17 08:59 | CON.PCM_ITS ---
Problem List (1) NATHANIEL (acute kidney injury) Status: Acute Consultation - Renal 11/17/20 PCP/ Referring MD: Requesting physician: [] Primary care physician: Dr. Sade Monsalve MD Reason for Consultation:: NATHANIEL hypokalemia - History of Present Illness History of Present Illness: The patient is a 64 year old F Who is seen in the office by my associate Dr. Handley. She has known history of CKD stage III with baseline creatinine around 1.2. Also has hyperkalemia, alkalosis, low normal normal blood pressures. She was not using any diuretics. Diagnosis was consistent with Gittelman syndrome. She takes potassium chloride 60 mEq daily. At some point in the past she was on salt tablets and spironolactone. She is no longer taking these. She also takes magnesium supplements 250 mg once a day. Routine blood work drawn yesterday showed hypokalemia, alkalosis, hypercalcemia, acute renal failure. She was sent to the emergency room. Overnight she has received IV fluids, potassium. Feels better today. - Allergies Allergies: Allergies chocolate flavor Allergy (Intermediate, Verified 11/16/20 15:37) Mucosal lesions EYELIDS W/ CYSTS AND FILL W/ MUCOUS triamcinolone [From Kenalog] Allergy (Intermediate, Verified 11/16/20 15:37) Rash strawberries Allergy (Intermediate, Uncoded 11/16/20 15:37) rash - Current Medications Current Medications: Current Medications Acetaminophen (Acetaminophen 325 Mg Tablet) 650 mg PO Q6H PRN PRN PRN Reason: Pain Score 1-10/Temp > 100.7 F Al Hydroxide/Mg Hydroxide (Mag Hydrox/Al Hydrox/Simeth 30 Ml Udc) 30 ml PO Q6H PRN PRN PRN Reason: Gastric Burning Albuterol Sulfate (Albuterol 2.5 Mg/3 Ml Vial.Neb.) 2.5 mg INHALATION Q2H PRN PRN PRN Reason: Dyspnea, wheezing Guaifenesin (Guaifenesin 10 Ml Udc (200mg/10ml)) 20 ml PO Q4H PRN PRN PRN Reason: COUGH Heparin Sodium (Porcine) (Heparin Injection (Vial) 5,000 Unit/Ml Vial) 5,000 unit SC Q12 ASIF Last Admin: 11/17/20 08:48 Dose: 5,000 unit Documented by: Hydralazine HCl (Hydralazine 20 Mg/Ml Vial) 10 mg IV Q4H PRN PRN PRN Reason: SBP > 160 Sodium Chloride () 1,000 mls @ 100 mls/hr IV .Q10H [facility] Last Admin: 11/17/20 05:56 Dose: 100 mls/hr Documented by: Magnesium Chloride (Magnesium Chloride 64 Mg Delay Rel.Tablet) 64 mg PO DAILY [facility] Last Admin: 11/17/20 08:48 Dose: 64 mg Documented by: Magnesium Hydroxide (Magnesium Hydroxide 30 Ml Udc) 30 ml PO DAILY PRN PRN PRN Reason: Constipation Melatonin (Melatonin 3 Mg Tablet) 3 mg PO QHS PRN PRN PRN Reason: INSOMNIA Nutritional Formula (Lactose Free) (Ensure Enlive 120 Ml Liquid) 120 ml PO 4X/DAY [facility] Last Admin: 11/17/20 08:47 Dose: Not Given Documented by: Ondansetron HCl (Ondansetron 4 Mg/2 Ml Vial) 4 mg IV Q8H PRN PRN PRN Reason: NAUSEA/VOMITING Potassium Chloride (Potassium Chloride Oral Tablet 10 Meq) 10 meq PO TID [facility] Last Admin: 11/17/20 05:53 Dose: 10 meq Documented by: Prochlorperazine Edisylate (Prochlorperazine 10 Mg/2 Ml Vial) 5 mg IV Q4H PRN PRN PRN Reason: Breakthrough nausea/vomiting Psyllium Hydrophilic Mucilloid (Psyllium 1 Packet) 1 packet PO DAILY PRN PRN PRN Reason: Constipation Senna/Docusate Sodium (Senna/Docusate Sodium 1 Tablet) 2 tablet PO BID PRN PRN PRN Reason: Constipation Sodium Chloride (0.9% Saline Lock 10 Ml Syringe) 10 - 40 ml IV UD PRN PRN Reason: SALINE FLUSH Throat Lozenges (Benzocaine/Menthol 1 Lozenge) 1 lozenge MUCOUS MEM Q2H PRN PRN PRN Reason: SORE THROAT Thyroid (Thyroid 60 Mg Tablet) 60 mg PO Q48H [facility] Thyroid (Thyroid 15 Mg Tablet) 30 mg PO Q48H [facility] Last Admin: 11/17/20 05:54 Dose: 30 mg Documented by: - Past Medical History Past Medical History (Chronic Problems): Chronic Problems (Last Updated 12/16/19 @ 08:02 by Nellie Castillo) Hypothyroidism (Chronic) Severe protein-calorie malnutrition (Chronic) Chronic kidney disease, stage III (moderate) (Chronic) - Past Surgical History Surgical History: - - Colonic polyp resection, bilateral carpal tunnel surgery, tonsillectomy. - Social History Smoking Status: Never smoker Alcohol: None Drugs: None - Family History Maternal Family History: Family History (Last Updated 12/16/19 @ 08:04 by Nellie Castillo) Mother Heart disease Hypertension Diabetes Father CVA (cerebral vascular accident) Diabetes Grandmother Arthritis Heart disease Uncle Cancer Aunt Breast cancer Cancer History Items: Diabetes, High Cholesterol, Hypertension Paternal Family History: Family History (Last Updated 12/16/19 @ 08:04 by Nellie Castillo) Mother Heart disease Hypertension Diabetes Father CVA (cerebral vascular accident) Diabetes Grandmother Arthritis Heart disease Uncle Cancer Aunt Breast cancer Cancer History Items: Diabetes, High Cholesterol, Hypertension, Stroke Review of Systems Constitutional: Denies: Chills, Fever, Weight Change HEENT: Denies: Head Aches, Sinus Congestion, Sinus Drainage Cardiovascular: Denies: Chest Pain, Palpitations Respiratory: Denies: Cough, Shortness of breath at rest, Sputum production Gastrointestinal: Denies: Abdominal Pain, Nausea, Vomiting Genitourinary: Denies: Dysuria Musculoskeletal: Denies: Joint Pain, Joint Tenderness Skin: Denies: Rash, Wounds Neurological: Denies: Numbness, Tingling, Focal weakness Psychiatric: Denies: Anxiety, Depression, Homicidal Ideations, Suicidal Ideations Hematologic/ Lymphatic: Denies: Easy Bruising, Easy Bleeding Patient Problems: Active and Suspected Problems (Last Updated 12/16/19 @ 08:02 by Nellie Castillo) NATHANIEL (acute kidney injury) (Acute) Electrolyte disturbance (Acute) Hypokalemia (Acute) Hypercalcemia (Acute) - Physical Exam Vitals/I&O's: Vital Signs Temp Pulse Resp BP Pulse Ox 97.9 F 63 16 103/55 L 97 11/17/20 08:43 11/17/20 08:43 11/17/20 08:43 11/17/20 08:43 11/17/20 08:43 Oxygen Delivery Method Room Air Weight: 37.4 kg Body Mass Index (BMI) 13.8 Intake and Output for Last 24 Hours 11/15/20 11/16/20 11/17/20 23:59 23:59 23:59 Intake Total 1600 / 1600 1851.67 / 1851.67 Output Total 600 / 600 Balance 1600 / 1600 1251.67 / 1251.67 General: Alert, Oriented x3, Cooperative HEENT: Atraumatic, PERRLA, EOMI, Normocephalic Neck: Supple, No JVD, Negative Carotid Bruits Lungs: Clear to auscultation, Normal air movement Cardiovascular: Regular rate, No murmurs Abdomen: Bowel Sounds Present, Soft, Non Tender Extremities: No edema, Capillary Refill Less than 3 Seconds Skin: No rashes, No breakdown Musculoskeletal: No Tenderness to Palpation of Joints or Extremities Neurological: Cranial nerves II-XII grossly intact Psych/Mental Status: Normal Affect, Appropriate Laboratory Results 11/16/20 15:20: Urine Color Straw, Urine Clarity Clear, Urine pH 8.0, Ur Specific [place] 1.010, Urine Protein Negative, Urine Glucose (UA) Normal, Urine Ketones Negative, Urine Occult Blood Negative, Urine Nitrite Negative, Urine Bilirubin Negative, Urine Urobilinogen Normal, Ur Leukocyte Esterase Negative, Urine RBC 0 SEEN, Urine WBC 0 SEEN, Ur Squamous Epith Cells 0 SEEN, Urine Bacteria 0 SEEN, Urine Mucus 0 SEEN 11/16/20 17:13: WBC 4.4, RBC 3.60 L, Hgb 11.6 L, Hct 34.6 L, MCV 96.1, MCH 32.2 H, MCHC 33.5, RDW Std Deviation 46.1 H, RDW Coeff of Miguelito 13.2, Plt Count 213, MPV 10.1, Immature Gran % (Auto) 0.200, Neut % (Auto) 59.7, Lymph % (Auto) 26.0, [place] % (Auto) 10.9 H, Eos % (Auto) 2.5, Baso % (Auto) 0.7, Absolute Neuts (auto) 2.6, Absolute Lymphs (auto) 1.14, Nucleated RBC % 0 11/16/20 17:13: Sodium 131 L, Potassium 2.7 L*, Chloride 86 L, Carbon Dioxide > 45.0 H*, Anion Gap TNP, BUN 23 H, Creatinine 2.07 H, Estim Creat Clear Calc 15.94, Est GFR (MDRD) Af Amer 31 L, Est GFR (MDRD) Non-Af 26 L, BUN/Creatinine Ratio 11.1, Glucose 81, Calcium 12.4 H 11/16/20 17:13: Magnesium 2.8 H 11/16/20 20:24: Specimen Type ART, Sample Site L Radial, pH 7.51 H, Bicarbonate Actual 37.5 H, Total CO2 39, Base Excess 15 H, O2 Saturation 96, ABG pCO2 47.0 H , ABG pO2 76, Venancio Test Positive, O2 Delivery Device Room Air 11/16/20 21:30: Ur Random Sodium 28, Urine Creatinine < 13.00 11/17/20 05:38: Ionized Calcium Pending 11/17/20 05:38: WBC 3.7 L, RBC 3.38 L, Hgb 10.8 L, Hct 33.0 L, MCV 97.6, MCH 32.0, MCHC 32.7, RDW Std Deviation 46.7 H, RDW Coeff of Miguelito 13.1, Plt Count 203, MPV 10.6, Immature Gran % (Auto) 0.300, Neut % (Auto) 51.0, Lymph % (Auto) 35.3, [place] % (Auto) 9.4, Eos % (Auto) 3.2, Baso % (Auto) 0.8, Absolute Neuts (auto) 1.9 L, Absolute Lymphs (auto) 1.32, Nucleated RBC % 0 11/17/20 05:38: Sodium 139, Potassium 3.8, Chloride 104, Carbon Dioxide 34.0 H, Anion Gap 1 L, BUN 18, Creatinine 1.72 H, Estim Creat Clear Calc 19.77, Est GFR (MDRD) Af Amer 38 L, Est GFR (MDRD) Non-Af 32 L, BUN/Creatinine Ratio 10.5, Glucose 80, Calcium 9.9, Total Bilirubin 0.30, AST 26, ALT 21, Alkaline Phosphatase 51, Total Protein 5.9 L, Albumin 2.8 L, Globulin 3.1, Albumin/Globulin Ratio 0.9 11/17/20 05:38: Vitamin D 25-Hydroxy Pending 11/17/20 05:38: Vit D 1,25-Dihydroxy Pending Current Medications Acetaminophen (Acetaminophen 325 Mg Tablet) 650 mg PO Q6H PRN PRN PRN Reason: Pain Score 1-10/Temp > 100.7 F Al Hydroxide/Mg Hydroxide (Mag Hydrox/Al Hydrox/Simeth 30 Ml Udc) 30 ml PO Q6H PRN PRN PRN Reason: Gastric Burning Albuterol Sulfate (Albuterol 2.5 Mg/3 Ml Vial.Neb.) 2.5 mg INHALATION Q2H PRN PRN PRN Reason: Dyspnea, wheezing Guaifenesin (Guaifenesin 10 Ml Udc (200mg/10ml)) 20 ml PO Q4H PRN PRN PRN Reason: COUGH Heparin Sodium (Porcine) (Heparin Injection (Vial) 5,000 Unit/Ml Vial) 5,000 unit SC Q12 [facility] Last Admin: 11/17/20 08:48 Dose: 5,000 unit Documented by: Hydralazine HCl (Hydralazine 20 Mg/Ml Vial) 10 mg IV Q4H PRN PRN PRN Reason: SBP > 160 Sodium Chloride () 1,000 mls @ 100 mls/hr IV .Q10H [facility] Last Admin: 11/17/20 05:56 Dose: 100 mls/hr Documented by: Magnesium Chloride (Magnesium Chloride 64 Mg Delay Rel.Tablet) 64 mg PO DAILY [facility] Last Admin: 11/17/20 08:48 Dose: 64 mg Documented by: Magnesium Hydroxide (Magnesium Hydroxide 30 Ml Udc) 30 ml PO DAILY PRN PRN PRN Reason: Constipation Melatonin (Melatonin 3 Mg Tablet) 3 mg PO QHS PRN PRN PRN Reason: INSOMNIA Nutritional Formula (Lactose Free) (Ensure Enlive 120 Ml Liquid) 120 ml PO 4X/DAY [facility] Last Admin: 11/17/20 08:47 Dose: Not Given Documented by: Ondansetron HCl (Ondansetron 4 Mg/2 Ml Vial) 4 mg IV Q8H PRN PRN PRN Reason: NAUSEA/VOMITING Potassium Chloride (Potassium Chloride Oral Tablet 10 Meq) 10 meq PO TID [facility] Last Admin: 11/17/20 05:53 Dose: 10 meq Documented by: Prochlorperazine Edisylate (Prochlorperazine 10 Mg/2 Ml Vial) 5 mg IV Q4H PRN PRN PRN Reason: Breakthrough nausea/vomiting Psyllium Hydrophilic Mucilloid (Psyllium 1 Packet) 1 packet PO DAILY PRN PRN PRN Reason: Constipation Senna/Docusate Sodium (Senna/Docusate Sodium 1 Tablet) 2 tablet PO BID PRN PRN PRN Reason: Constipation Sodium Chloride (0.9% Saline Lock 10 Ml Syringe) 10 - 40 ml IV UD PRN PRN Reason: SALINE FLUSH Throat Lozenges (Benzocaine/Menthol 1 Lozenge) 1 lozenge MUCOUS MEM Q2H PRN PRN PRN Reason: SORE THROAT Thyroid (Thyroid 60 Mg Tablet) 60 mg PO Q48H ASIF Thyroid (Thyroid 15 Mg Tablet) 30 mg PO Q48H ASIF Last Admin: 11/17/20 05:54 Dose: 30 mg Documented by: Assessment/Plan All Active Problems (Last Updated 12/16/19 @ 08:02 by Nellie Castillo) NATHANIEL (acute kidney injury) (Acute) Electrolyte disturbance (Acute) Hypokalemia (Acute) Hypercalcemia (Acute) Personal history of colonic polyps (Acute) acute renal failure CKD stage IIIa Likely related to volume depletion. With fluids alone creatinine is better. Renal ultrasound done this morning. We will follow up on the results. Hypokalemia Hypomagnesemia Alkalosis. Secondary to Gittelman syndrome. Potassium is better today. Alkalosis is better as well Hypercalcemia. Typically alkalosis causes low calcium. Not sure why she had high calcium. Better today She usually takes coated potassium pills which she thinks is not absorbing. She received regular potassium chloride pills here and inks she is absorbing these better. Will switch of this prescription to uncoated potassium chloride
[2020-11-17 09:11] LABS: Vitamin D,25 Hydroxy 41.8 ng/mL
--- NOTE | 2020-11-17 10:40 | CASEMGMT ---
RN CM MATHEMATICAL PHYSICIST CM to room to meet with patient for initial transition planning/care coordination assessment. RN KENYA introduced self and role at [facility]. Pt voices understanding and consents to assessment at this time. Pt resting in bed in no distress at this time. , Jair, @ bedside. Pt is A/O at this time and answers all questions appropriately. Care providers, pharmacy, and demographics verified/updated at this time. PCP: Dr Monsalve Specialists: Dr Handley--nephrology. Has an appt next week on 11/22. Preferred Pharmacy: [facility] Retail Insurance: MMO Prescription Benefit: yes. States has a $7,000 deductible. Living Will/HPOA: Has both LW and Healthcare POA, who is her , Jair LNOK: Jair Living Arrangements: Lives w/ in 2-story home. Bathroom and bedroom on 2nd floor. 1/2 bath on 1st floor. States able to navigate the stairs well. Independent. Transportation: Pt states drives self and states no transportation concerns at this time. also drives and usually does most of the driving. DME: States has the following DME: BP machine, pulse ox Pt states no need for further DME at this time. HHC/SNF: No history of either. Pt wishes to return home and states has no concerns with going home at time of discharge. CM to follow for any discharge planning/needs. Pt voices no further concerns/needs at this time. Advised pt to ask for CM if any further questions/concerns/needs arise. Voices understanding. PLAN: Home w/spousal support and discharge plans in place. Angelica HOLDER RN, CM
--- NOTE | 2020-11-17 12:22 | DCINST_ITS ---
- Discharge Diagnoses Current Active Problems: Current Active and Chronic Problems (Last Updated 12/16/19 @ 08:02 by Nellie Castillo) NATHANIEL (acute kidney injury) (Acute) Electrolyte disturbance (Acute) Hypothyroidism (Chronic) Severe protein-calorie malnutrition (Chronic) Chronic kidney disease, stage III (moderate) (Chronic) Hypokalemia (Acute) Hypercalcemia (Acute) You will use the following diet at home:: No restrictions Your food should be the consistency of: Regular Your liquids should be the consistency of: Regular/Thin Discharge Activity: Return to Normal Activity Weight Bearing Status: Weight bearing as tolerated Call your doctor if you observe: Fever of 101 or Higher, Numbness or Tingling, Shortness of breath, Dizziness, Fainting spells Instructions: Acute Kidney Failure, Hypokalemia Allergies/Adverse Reactions: Allergies chocolate flavor Allergy (Intermediate, Verified 11/16/20 15:37) Mucosal lesions EYELIDS W/ CYSTS AND FILL W/ MUCOUS triamcinolone [From Kenalog] Allergy (Intermediate, Verified 11/16/20 15:37) Rash strawberries Allergy (Intermediate, Uncoded 11/16/20 15:37) rash Medications to take at Discharge magnesium 250 mg tablet 250 mg PO DAILY 12/16/19 potassium chloride 10 mEq tablet,extended release 20 meq PO DAILY 12/16/19 Alendronate Sodium [Fosamax] 70 mg PO TH@0700 12/28/19 Glucosamine/MSM/Chondroitin A [Fnmognskyuh-Jyamhmvmj-GDI Cplt] 2 tablet PO BID 11/16/20 Thyroid,Pork [[place] Thyroid] 30 mg PO QODAY 11/16/20 Thyroid,Pork [[place] Thyroid] 60 mg PO QODAY 11/16/20 Potassium Chloride Oral Tablet [K-Dur] 10 meq PO DAILY 90 Days #30 tab 11/17/20 The following prescriptions were given: Potassium Chloride Oral Tablet [K-Dur] 10 meq PO DAILY 90 Days #30 tab Transmission Status: Pending to [facility] Primary Care Physician: Sade Monsalve MD [Primary Care Provider] - Please follow up with your Primary Care Physician in: 1-2 weeks Test Results: Test results from this visit will be discussed in further detail at your follow- up appointment, if applicable. Please Follow Up With: Jaret Handley MD When: 1 week Proposed Discharge Date: 11/17/20
--- NOTE | 2020-11-17 12:27 | PCM.DC.SUM ---
Discharge Date and Diagnosis - Problem List Patient Problems: Active and Suspected Problems (Last Updated 12/16/19 @ 08:02 by Nellie Castillo) NATHANIEL (acute kidney injury) (Acute) Electrolyte disturbance (Acute) Hypokalemia (Acute) Hypercalcemia (Acute) Date of Admission: 11/16/20 Date of Discharge: 11/17/20 - Primary Discharge Diagnosis Acute Problems: Active Problems (Last Updated 12/16/19 @ 08:02 by Nellie Castillo) NATHANIEL (acute kidney injury) (Acute) Electrolyte disturbance (Acute) Hypokalemia (Acute) Hypercalcemia (Acute) - Secondary Discharge Diagnosis Chronic Problems: Chronic Problems (Last Updated 12/16/19 @ 08:02 by Nellie Castillo) Hypothyroidism (Chronic) Severe protein-calorie malnutrition (Chronic) Chronic kidney disease, stage III (moderate) (Chronic) Hospital Course and Treatment Imaging Results: 11/17/20 05:55 Kidney and Bladder [US] AM (NON MEDS) nephrology- Dr Ford Operations: None Procedures: None Summary of Care Provided: The patient is a 64 year old F with an extensive past medical history as outlined. She was admitted through the ED on 11/16/2020 on account of abnormal labs. She had no significant complaints. 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 Outpatient labs done showed elevated CO2 and elevated calcium as well as hypokalemia so she was sent into the ED. On admission, potassium was 2.7 with bicarb more than 45 and calcium of 12.4. Urinalysis was within normal limits. SHe was admitted and managed for metabolic alkalosis with hypokalemia and hypercalcemia. She was hydrated with IV fluids potassium was replaced. Bicarb trended down to 34. Nephrology reviewed patient. Calcium trended down with hydration. Patient remained stable. Per discussion with nephrology, her coated potassium pills were switched to regular potassium pills namely K. Dur as she felt her coated potassium pills were not being absorbed well. She was discharged home on uncoated potassium chloride 30 mEq daily. She is to follow-up with her primary care doctor and with nephrology within 1 week. Patient seen and examined prior to discharge. She felt well and wanted to be discharged home. She had no complaints. Review of systems otherwise negative. Labs and vitals reviewed. Medication reviewed and reconciled. Patient Problems: Active and Suspected Problems (Last Updated 12/16/19 @ 08:02 by Nellie Castillo) NATHANIEL (acute kidney injury) (Acute) Electrolyte disturbance (Acute) Hypokalemia (Acute) Hypercalcemia (Acute) - Physical Exam Vitals/I&O's: Vital Signs Temp Pulse Resp BP Pulse Ox 97.9 F 63 16 103/55 L 97 11/17/20 08:43 11/17/20 08:43 11/17/20 08:43 11/17/20 08:43 11/17/20 08:43 Oxygen Delivery Method Room Air Weight: 82 lb 7.246 oz Body Mass Index (BMI) 13.8 Intake and Output for Last 24 Hours 11/15/20 11/16/20 11/17/20 23:59 23:59 23:59 Intake Total 1600 / 1600 1851.67 / 1851.67 Output Total 600 / 600 Balance 1600 / 1600 1251.67 / 1251.67 General: Alert, Oriented x3, Cooperative, - - cachectic; BMI is ~ 14 HEENT: Atraumatic, PERRLA, EOMI, Normocephalic Neck: Supple, No JVD, Negative Carotid Bruits Lungs: Clear to auscultation, Normal air movement Cardiovascular: Regular rate, No murmurs Abdomen: Bowel Sounds Present, Soft, Non Tender Extremities: No edema, Capillary Refill Less than 3 Seconds Skin: No rashes, No breakdown Musculoskeletal: No Tenderness to Palpation of Joints or Extremities Neurological: Cranial nerves II-XII grossly intact Psych/Mental Status: Normal Affect, Appropriate, Alert and oriented to time, place, person, mood and affect Laboratory Results 11/16/20 15:20: Urine Color Straw, Urine Clarity Clear, Urine pH 8.0, Ur Specific K[place] 1.010, Urine Protein Negative, Urine Glucose (UA) Normal, Urine Ketones Negative, Urine Occult Blood Negative, Urine Nitrite Negative, Urine Bilirubin Negative, Urine Urobilinogen Normal, Ur Leukocyte Esterase Negative, Urine RBC 0 SEEN, Urine WBC 0 SEEN, Ur Squamous Epith Cells 0 SEEN, Urine Bacteria 0 SEEN, Urine Mucus 0 SEEN 11/16/20 17:13: WBC 4.4, RBC 3.60 L, Hgb 11.6 L, Hct 34.6 L, MCV 96.1, MCH 32.2 H, MCHC 33.5, RDW Std Deviation 46.1 H, RDW Coeff of Miguelito 13.2, Plt Count 213, MPV 10.1, Immature Gran % (Auto) 0.200, Neut % (Auto) 59.7, Lymph % (Auto) 26.0, [place] % (Auto) 10.9 H, Eos % (Auto) 2.5, Baso % (Auto) 0.7, Absolute Neuts (auto) 2.6, Absolute Lymphs (auto) 1.14, Nucleated RBC % 0 11/16/20 17:13: Sodium 131 L, Potassium 2.7 L*, Chloride 86 L, Carbon Dioxide > 45.0 H*, Anion Gap TNP, BUN 23 H, Creatinine 2.07 H, Estim Creat Clear Calc 15.94, Est GFR (MDRD) Af Amer 31 L, Est GFR (MDRD) Non-Af 26 L, BUN/Creatinine Ratio 11.1, Glucose 81, Calcium 12.4 H 11/16/20 17:13: Magnesium 2.8 H 11/16/20 20:24: Specimen Type ART, Sample Site L Radial, pH 7.51 H, Bicarbonate Actual 37.5 H, Total CO2 39, Base Excess 15 H, O2 Saturation 96, ABG pCO2 47.0 H, ABG pO2 76, Venancio Test Positive, O2 Delivery Device Room Air 11/16/20 21:30: Ur Random Sodium 28, Urine Creatinine < 13.00 11/17/20 05:38: Ionized Calcium Pending 11/17/20 05:38: WBC 3.7 L, RBC 3.38 L, Hgb 10.8 L, Hct 33.0 L, MCV 97.6, MCH 32.0, MCHC 32.7, RDW Std Deviation 46.7 H, RDW Coeff of Miguelito 13.1, Plt Count 203, MPV 10.6, Immature Gran % (Auto) 0.300, Neut % (Auto) 51.0, Lymph % (Auto) 35.3, [place] % (Auto) 9.4, Eos % (Auto) 3.2, Baso % (Auto) 0.8, Absolute Neuts (auto) 1.9 L, Absolute Lymphs (auto) 1.32, Nucleated RBC % 0 11/17/20 05:38: Sodium 139, Potassium 3.8, Chloride 104, Carbon Dioxide 34.0 H, Anion Gap 1 L, BUN 18, Creatinine 1.72 H, Estim Creat Clear Calc 19.77, Est GFR (MDRD) Af Amer 38 L, Est GFR (MDRD) Non-Af 32 L, BUN/Creatinine Ratio 10.5, Glucose 80, Calcium 9.9, Total Bilirubin 0.30, AST 26, ALT 21, Alkaline Phosphatase 51, Total Protein 5.9 L, Albumin 2.8 L, Globulin 3.1, Albumin/Globulin Ratio 0.9 11/17/20 05:38: Vitamin D 25-Hydroxy 41.8 11/17/20 05:38: Vit D 1,25-Dihydroxy Pending Current Medications Acetaminophen (Acetaminophen 325 Mg Tablet) 650 mg PO Q6H PRN PRN PRN Reason: Pain Score 1-10/Temp > 100.7 F Al Hydroxide/Mg Hydroxide (Mag Hydrox/Al Hydrox/Simeth 30 Ml Udc) 30 ml PO Q6H PRN PRN PRN Reason: Gastric Burning Albuterol Sulfate (Albuterol 2.5 Mg/3 Ml Vial.Neb.) 2.5 mg INHALATION Q2H PRN PRN PRN Reason: Dyspnea, wheezing Guaifenesin (Guaifenesin 10 Ml Udc (200mg/10ml)) 20 ml PO Q4H PRN PRN PRN Reason: COUGH Heparin Sodium (Porcine) (Heparin Injection (Vial) 5,000 Unit/Ml Vial) 5,000 unit SC Q12 [facility] Last Admin: 11/17/20 08:48 Dose: 5,000 unit Documented by: Hydralazine HCl (Hydralazine 20 Mg/Ml Vial) 10 mg IV Q4H PRN PRN PRN Reason: SBP > 160 Sodium Chloride () 1,000 mls @ 100 mls/hr IV .Q10H [facility] Last Admin: 11/17/20 05:56 Dose: 100 mls/hr Documented by: Magnesium Chloride (Magnesium Chloride 64 Mg Delay Rel.Tablet) 64 mg PO DAILY [facility] Last Admin: 11/17/20 08:48 Dose: 64 mg Documented by: Magnesium Hydroxide (Magnesium Hydroxide 30 Ml Udc) 30 ml PO DAILY PRN PRN PRN Reason: Constipation Melatonin (Melatonin 3 Mg Tablet) 3 mg PO QHS PRN PRN PRN Reason: INSOMNIA Nutritional Formula (Lactose Free) (Ensure Enlive 120 Ml Liquid) 120 ml PO 4X/DAY [facility] Last Admin: 11/17/20 08:47 Dose: Not Given Documented by: Ondansetron HCl (Ondansetron 4 Mg/2 Ml Vial) 4 mg IV Q8H PRN PRN PRN Reason: NAUSEA/VOMITING Potassium Chloride (Potassium Chloride Oral Tablet 10 Meq) 10 meq PO TID [facility] Last Admin: 11/17/20 05:53 Dose: 10 meq Documented by: Prochlorperazine Edisylate (Prochlorperazine 10 Mg/2 Ml Vial) 5 mg IV Q4H PRN PRN PRN Reason: Breakthrough nausea/vomiting Psyllium Hydrophilic Mucilloid (Psyllium 1 Packet) 1 packet PO DAILY PRN PRN PRN Reason: Constipation Senna/Docusate Sodium (Senna/Docusate Sodium 1 Tablet) 2 tablet PO BID PRN PRN PRN Reason: Constipation Sodium Chloride (0.9% Saline Lock 10 Ml Syringe) 10 - 40 ml IV UD PRN PRN Reason: SALINE FLUSH Throat Lozenges (Benzocaine/Menthol 1 Lozenge) 1 lozenge MUCOUS MEM Q2H PRN PRN PRN Reason: SORE THROAT Thyroid (Thyroid 60 Mg Tablet) 60 mg PO Q48H AISF Thyroid (Thyroid 15 Mg Tablet) 30 mg PO Q48H [facility] Last Admin: 11/17/20 05:54 Dose: 30 mg Documented by: Discharge Activity: Return to Normal Activity Weight Bearing Status: Weight bearing as tolerated Call your doctor if you observe: Fever of 101 or Higher, Numbness or Tingling, Shortness of breath, Dizziness, Fainting spells Home Medications: Medications to take at Discharge magnesium 250 mg tablet 250 mg PO DAILY 12/16/19 potassium chloride 10 mEq tablet,extended release 20 meq PO DAILY 12/16/19 Alendronate Sodium [Fosamax] 70 mg PO TH@0700 12/28/19 Glucosamine/MSM/Chondroitin A [Kldimrutspd-Nyyavmruc-GJN Cplt] 2 tablet PO BID 11/16/20 Thyroid,Pork [[place] Thyroid] 30 mg PO QODAY 11/16/20 Thyroid,Pork [[place] Thyroid] 60 mg PO QODAY 11/16/20 Potassium Chloride Oral Tablet [K-Dur] 30 meq PO DAILY #90 tab 11/17/20 Following Prescriptions Were Given to Patient: Potassium Chloride Oral Tablet [K-Dur] 30 meq PO DAILY #90 tab Transmission Status: Received by [facility] Primary Care Physician: Sade Monsalve MD [Primary Care Provider] - Please follow up with your Primary Care Physician in: 1-2 weeks Please Follow Up With: Jaret Handley MD When: 1 week Patient Instructions: Acute Kidney Failure, Hypokalemia Disposition: Home Minutes spent on discharge:: 35 Patient Condition:: Stable Medical Necessity - Tobacco Use Smoking Status: Never smoker Tobacco Use: Secondhand Meaningful Use Info Meaningful Use Diagnoses (Choose all that apply): None applicable OBSV E&M: 88579 Observation care discharge
--- NOTE | 2020-11-17 12:48 | PCM.NTREPORT ---
Nutrition Therapy Report - History Nutrition Services has been consulted to:: Manage nutrient details of diet order Current diet / nutrition support order:: Regular diet. 120ml ensure enlive 4 times per day w/ medpass - Anthropometric Measurements Height:: 5 ft 4 in Weight:: 37.4 kg Body Mass Index (BMI):: 14.1 - Relevant Labs Relevant Labs:: WBC 3.7 K/mm3 (4.4-11.0) L 11/17/20 05:38 RBC 3.38 M/mm3 (4.2-5.4) L 11/17/20 05:38 Hgb 10.8 g/dL (12.0-15.0) L 11/17/20 05:38 Hct 33.0 % (37-47) L 11/17/20 05:38 MCH 32.2 pg (27.0-32.0) H 11/16/20 17:13 RDW Std Deviation 46.7 fl (35.1-43.9) H 11/17/20 05:38 [place] % (Auto) 10.9 % (0-10) H 11/16/20 17:13 Absolute Neuts (auto) 1.9 X10^3/uL (2.0-7.7) L 11/17/20 05:38 Sodium 131 mmol/L (136-145) L 11/16/20 17:13 Potassium 2.7 mmol/L (3.5-5.1) L* 11/16/20 17:13 Chloride 86 mmol/L (98-107) L 11/16/20 17:13 Carbon Dioxide 34.0 mmol/L (21.0-32.0) H 11/17/20 05:38 Anion Gap 1 (5-15) L 11/17/20 05:38 BUN 23 mg/dL (7-18) H 11/16/20 17:13 Creatinine 1.72 mg/dL (0.55-1.02) H 11/17/20 05:38 Est GFR (MDRD) Af Amer 38 mL/min (>60) L 11/17/20 05:38 Est GFR (MDRD) Non-Af 32 mL/min (>60) L 11/17/20 05:38 Calcium 12.4 mg/dL (8.5-10.1) H 11/16/20 17:13 Magnesium 2.8 mg/dL (1.6-2.6) H 11/16/20 17:13 Total Protein 5.9 g/dL (6.4-8.2) L 11/17/20 05:38 Albumin 2.8 g/dL (3.2-5.0) L 11/17/20 05:38 - Assessment Food / Nutrition-Related History:: Pt reports avoidance of many foods/components of food including gluten, yogurt, red meat, chocolate, ensure to name a few. Pt denies difficulty chewing/swallowing but, poor appetite has been ongoing since July 2020(4 months now) things just don't taste right per pt. +NFPA, pt with severe muscle and fat wasting evident in face, clavicle, arms, legs and upper body. Suspect eating disorder as pt seems to follow many fad/quack nutrition plans and has multiple food dislikes, aversions that do not seem grounded in science or her medical hx. Pt reports UBW~90 lbs in July of 2020 when appetite just suddenly declined; calculated~9% wt loss x past 4 months--wt loss is significant for severe pro/jorge malnutrition. Pt only took eggs for breakfast today and refusing ensure enlive w/ medpass as, pt reports she will only take original Boost in vanilla flavor. Pt reports being gluten-free so, will update current regular diet order. PO/macey continue to be poor overall and inadequate at meals. Strongly encouraged to to continue at least 3-240ml bottles of Boost daily in addition to solid foods as tolerated to promote gradual wt gain--pt agrees but, ? compliance. - Nutrition Diagnosis Problem / Etiology / Signs & Symptoms (PES):: Severe pro/jorge malnutrition in the context of chronic disease and social circumstance related to suspected eating disorder and ongoing poor appetite as evidenced by~9% recent unintentional wt loss x past 3-4 months, meeting less than 50% of nutrition needs x past 3-4 months, refusal of many ONS and most foods, +NFPA with visibly obvious muscle/fat wasting in the face, upper body, clavicle, arms and legs. Evidence of Malnutrition Exists:: Yes Severe PCM:: Chronic Illness - Nutrition Intervention Nutrition Prescription:: Estimated nutrition needs for repletion~8154-8607 kcal (35 kcal/Kg +250 kcal) and ~50-60 gm pro (1.5 gm pro/Kg) per day. Estimated fluid needs~1500 ml/day (40 ml/Kg). - Food / Nutrient Delivery Interventions Summary of nutrition intervention:: Will continue regular diet but, add gluten-free as per pt preference. Will d/c ensure enlive w/ medpass as, pt refusing & will only take vanilla orginal Boost that she brought from home. Pt refusing all ONS carried on [facility] formulary. May need to consider TF support to replete energy/protein; suspect pt will not consume adequate nutrition for repletion. Nutrition support ordered as / adjusted to:: None at this time but, may need to consider TF support for repletion of energy/protein. Nutrition education provided?: Yes - MNT Monitoring Further MNT monitoring and evaluation required?: Yes MNT Follow-up in:: 3-5 days
[2020-11-17 12:51] VITALS: BMI 14.1
[2020-11-17 12:58] VITALS: PULSE 75
[2020-11-20] MEDS: 0.9% Normal Saline 1,000 ML 100 ML IV (14:40)
== END 2020-11-17 13:52 | disposition home or self-care (01) ==
LOC: ED 16:26 → MS3 19:10
PROVIDERS: Admitting Provider Family Medicine; Emergency Provider Emergency Medicine; PCP Family Medicine; Visit Provider Student in an Organized Health Care Education/Training Program
DX: N17.9 Acute kidney failure, unspecified (principal); E87.6 Hypokalemia; E03.9 Hypothyroidism, unspecified; E43 Unspecified severe protein-calorie malnutrition; N18.31 Chronic kidney disease, stage 3a; E87.1 Hypo-osmolality and hyponatremia; E83.52 Hypercalcemia; Z68.1 Body mass index [BMI] 19.9 or less, adult; Z79.899 Other long term (current) drug therapy
CPT/HCPCS: 36415; 36600; 76770; 80048; 80053; 81001; 82306; 82330; 82570; 82652; 82803; 83735; 84300; 85025; 93005; 96361; 96365; 96372; 97802; 99218; 99251; 99285; J7030; J7040; A4216; G0378; G0463

== ENCOUNTER 2020-12-13 12:24 | Outpatient (RCR) | payer OTHER, SELFPAY | END 2021-01-17 23:59 | LOC: IMMUN 12:24 | PROVIDERS: PCP Family Medicine; Referring Provider Family Medicine; Visit Provider Family Medicine | DX: Z23 Encounter for immunization (principal) | CPT/HCPCS: 0001A; 91300 ==

== ENCOUNTER → 2021-01-12 09:33 | Outpatient (CLI) | payer OTHER, SELFPAY ==
[2021-01-12 09:41] LABS: Bacteria 0 SEEN /hpf (None Seen); Mucous, Urine 0 SEEN /hpf (<or=2+); Red Blood Cells-Urine 0 SEEN /hpf (0-5); Squamous Epithelial Cells - UA 0 SEEN /hpf (5-10); White Blood Cells 0 SEEN /hpf (0-5)
[2021-01-12 10:10] LABS: Color, Urine Yellow (Yellow); Glucose, Dipstick Normal (Normal); Ketone-Dipstick Negative (Negative); Leukocyte Esterase-Dipstick Negative /ul (Negative); Nitrite-Dipstick Negative (Negative); Occult Blood-Urine Negative /ul (Negative); Protein-Dipstick Negative (Negative); Urine Bilirubin Dipstick Negative (Negative); Urine Clarity Clear (Clear); Urine Urobilinogen Normal (Normal)
[2021-01-12 10:31] LABS: PTHIN 51.3 pg/mL (18.4-80.1)
[2021-01-12 10:35] LABS: Anion Gap 2 (5-15); BUN 20 mg/dL (7-18); BUN/Creat Ratio 16.7 RATIO (10-20); Calcium,Total 9.1 mg/dL (8.5-10.1); Chloride 105 mmol/L (98-107); EST Glomerular Filtration Rate 48 mL/min (>60); Est Glom Filt Rate - Afr Amer 58 mL/min (>60); Glucose 100 mg/dL (74-106); Phosphorus 2.8 mg/dL (2.5-4.9); Potassium 4.5 mmol/L (3.5-5.1); Sodium Level 138 mmol/L (136-145); Vitamin D,25 Hydroxy 38.6 ng/mL
[2021-01-12 10:38] LABS: Protein, Urine (Random) 20.9 mg/dL (<11.9); Protein:Creat Ratio 713 mg/g CRE (0-200)
[2021-01-12 10:55] LABS: 24HR. UA Prot. Total Volume 3000 mL; Urine Protein (24 Hour) 14.4 mg/dL (<11.9)
[2021-01-12 11:12] LABS: Creat.Clear Total Volume 3000 mL; Creatinine Clearance 30 ml/min (100-200); Creatinine Serum Creat 1.2 mg/dL (0.6-1.0); EST Glomerular Filtration Rate 48 mL/min (>60); Est Glom Filt Rate - Afr Amer 58 mL/min (>60)
[2021-01-16 16:09] LABS: Albumin, Ur 19.6 % (.); Alpha-1-Globulin, Ur 10.1 % (.); Alpha-2-Globulins, Ur 13.3 % (.); Beta Globulin, Ur 40.2 % (.); Gamma Globulin, Ur 16.9 % (.); M-Spike, Ur % Not Observed % (Not Observed); Protein, 24Ur 132 mg/24 hr (30-150); Total Protein, Ur 4.4 mg/dL (Not Estab.)
== END ==
PROVIDERS: PCP Family Medicine; Referring Provider Internal Medicine; Visit Provider Internal Medicine
DX: N18.30 Chronic kidney disease, stage 3 unspecified (principal); N25.81 Secondary hyperparathyroidism of renal origin; R80.9 Proteinuria, unspecified; E55.9 Vitamin D deficiency, unspecified
CPT/HCPCS: 36415; 80048; 81001; 81050; 82306; 82570; 82575; 83970; 84100; 84156; 84166; 86335

== ENCOUNTER → 2021-04-13 11:27 | Outpatient (CLI) | payer OTHER, SELFPAY ==
[2021-04-13 12:02] LABS: Anion Gap 3 (5-15); BUN 16 mg/dL (7-18); BUN/Creat Ratio 12.3 RATIO (10-20); Calcium,Total 9.6 mg/dL (8.5-10.1); Chloride 100 mmol/L (98-107); EST Glomerular Filtration Rate 44 mL/min (>60); Est Glom Filt Rate - Afr Amer 53 mL/min (>60); Glucose 111 mg/dL (74-106); Magnesium 2.4 mg/dL (1.6-2.6); Potassium 4.7 mmol/L (3.5-5.1); Sodium Level 137 mmol/L (136-145)
== END ==
PROVIDERS: PCP Family Medicine; Referring Provider Internal Medicine Nephrology; Visit Provider Internal Medicine Nephrology
DX: N18.31 Chronic kidney disease, stage 3a (principal); N15.8 Other specified renal tubulo-interstitial diseases; E83.42 Hypomagnesemia
CPT/HCPCS: 36415; 80048; 83735

== ENCOUNTER 2021-09-11 08:10 | Outpatient (CLI) | payer OTHER, SELFPAY ==
[2021-09-11 09:12] LABS: Creatinine, Urine (random) < 13.00 mg/dL (NO RANGE EST.); Protein, Urine (Random) 8.2 mg/dL (<11.9)
[2021-09-11 09:18] LABS: Anion Gap 3 (5-15); BUN 12 mg/dL (7-18); BUN/Creat Ratio 11.2 RATIO (10-20); Calcium,Total 9.1 mg/dL (8.5-10.1); Chloride 103 mmol/L (98-107); Creatinine, Serum 1.07 mg/dL (0.55-1.02); EST Glomerular Filtration Rate 55 mL/min (>60); Est Glom Filt Rate - Afr Amer 66 mL/min (>60); Glucose 91 mg/dL (74-106); Potassium 4.5 mmol/L (3.5-5.1); Sodium Level 138 mmol/L (136-145)
== END 2021-09-11 23:59 | disposition short-term general hospital (02) ==
PROVIDERS: PCP Family Medicine; Referring Provider Nurse Practitioner Adult Health; Visit Provider Nurse Practitioner Adult Health
DX: N18.31 Chronic kidney disease, stage 3a (principal)
CPT/HCPCS: 36415; 80048; 82570; 84156

== ENCOUNTER 2021-11-16 11:51 | Outpatient (CLI) | payer MEDICARE, SELFPAY ==
[2021-11-16 13:52] LABS: Hematocrit 44.3 % (37-47); Hemoglobin 14.4 g/dL (12.0-15.0); Mean Corp Hgb Conc 32.5 g/dL (32-36); Mean Corpuscular Hgb 30.2 pg (27.0-32.0); Mean Corpuscular Volume 92.9 fL (81-99); Mean Platelet Vol. 10.1 fl (6.2-12.0); Platelet Count 263 K/mm3 (150-450); RBC Distribution Width CV 12.8 % (11.6-14.6); RBC Distribution Width SD 43.8 fl (35.1-43.9); Red Blood Count 4.77 M/mm3 (4.2-5.4); White Blood Count 4.7 K/mm3 (4.4-11.0)
[2021-11-16 14:19] LABS: Vitamin D,25 Hydroxy 33.1 ng/mL
[2021-11-16 14:29] LABS: ALB/GLOB Ratio 1.1 RATIO (0.9-2.4); AST(SGOT) 26 U/L (15-37); Alanine Aminotransfer ALT/SGPT 26 U/L (13-56); Albumin, Serum 3.6 g/dL (3.2-5.0); Alkaline Phosphatase 73 U/L (45-117); Anion Gap 2 (5-15); BUN 14 mg/dL (7-18); Calcium,Total 9.4 mg/dL (8.5-10.1); Chloride 102 mmol/L (98-107); Creatinine, Serum 1.17 mg/dL (0.55-1.02); EST Glomerular Filtration Rate 49 mL/min (>60); Est Glom Filt Rate - Afr Amer 60 mL/min (>60); Globulin 3.3 g/dL (2.2-4.2); Glucose 99 mg/dL (74-106); Potassium 4.5 mmol/L (3.5-5.1); Protein, Total 6.9 g/dL (6.4-8.2); Sodium Level 137 mmol/L (136-145); T4 Free Direct 1.82 ng/dL (0.76-1.46); Thyroid Stim Hormone (TSH) 0.05 uIU/mL (0.358-3.74)
== END 2021-11-16 23:59 | disposition home or self-care (01) ==
PROVIDERS: PCP Nurse Practitioner Family; Visit Provider Nurse Practitioner Family
DX: N18.9 Chronic kidney disease, unspecified (principal); D63.8 Anemia in other chronic diseases classified elsewhere; E03.9 Hypothyroidism, unspecified; E55.9 Vitamin D deficiency, unspecified
CPT/HCPCS: 36415; 80053; 82306; 84439; 84443; 85027

== ENCOUNTER → 2021-11-27 | Outpatient (CLI) | payer MEDICARE, SELFPAY ==
--- NOTE | 2021-11-27 13:40 | BI_ITS ---
MAMMOGRAPHY - BILATERAL SCREENING 3-D TOMOSYNTHESIS REASON FOR EXAM: Female, 66 years old. SCREENING PERTINENT HISTORY: No significant family history. TECHNIQUE: 2-D mammograms and 3-D Tomosynthesis of the breast (s) were performed. CAD was performed. COMPARISON: 05/23/2017 FINDINGS: The breast composition is Extermely dense tissue. Scattered benign calcifications are seen. No dense spiculated masses or suspicious microcalcifications are identified. No architectural distortion is identified. There is no skin thickening or retraction. There has been no significant change since the prior study. BI/SCRN MAMM (CAD)W/STEWART BILAT IMPRESSION: No mammographic signs of malignancy. Routine yearly mammograms recommended. ASSESSMENT CATEGORY: BIRADS Category 1: Negative. A letter regarding these results will be sent to the patient by the facility within 30 days. FOLLOW UP RECOMMENDATION: Yearly follow up mammogram recommended. (A) Approximately 10% of breast cancers are not detected by mammography. A normal mammogram should not delay biopsy of a clinically suspicious abnormality. Electronically Signed: Pieter Rodríguez MD at 14:04 EDT ,
--- NOTE | 2021-11-27 14:06 | BD_ITS ---
STUDY: DUAL ENERGY X-RAY ABSORPTIOMETRY / DXA REASON FOR EXAM: Female, 66 years old. [id number]. Patient is postmenopausal. TECHNIQUE: Bone Mineral Density (BMD) measurements of lumbar spine and bilateral hips were obtained. COMPARISON: Comparison is made with prior study of 10/28/2019. FINDINGS: Lumbar Spine (L1-L4): g/cm2 (0.583) / T-score (-4.3) / Z-score (-2.5) Findings are suggestive of osteoporosis with a high fracture risk. Left Femur Total: g/cm2 (0.522) / T-score (-3.4) / Z-score (-2.2) Left Femoral Neck: g/cm2 (0.434) / T-score (-3.7) / Z-score (-2.2) Right Femur Total: g/cm2 (0.512) / T-score (-3.5) / Z-score (-2.3) Right Femoral Neck: g/cm2 (0.434) / T-score (-3.7) / Z-score (-2.2) The T-Scores on the most recent prior examination were: Lumbar Spine (L1-L4): There has been improvement of bone density since the previous examination. Left Femur Total: which represents an improvement of 1.3%. Right Femur Total: which represents a worsening of 2.8%. BD/Dexa Bone Density Study IMPRESSION: The patient is considered osteoporotic as outlined below according to World Rafael Organization (WHO) criteria with a high fracture risk. There has been improvement of bone density since the previous examination. Reference Information: The T-score is the number of standard deviations above or below the standard which is normal for young adults at their peak bone mineral density. The World Health Organization (WHO) interprets the T-scores as follows: Above -1 Normal bone density Between -1 and -2.5 Osteopenia Equal to / or below -2.5 Osteoporosis As a practical clinical guideline, osteopenia may be graded as follows: Mild -1 through -1.5 Moderate -1.6 through -2.0 Severe -2.1 through -2.4 The Z-score is the number of standard deviations above or below age-matched controls. A Z-score of less than -1.5 would be considered abnormal. References: 1. NIH Osteoporosis and Related Bone Diseases www osteo.org 2. International Society for Clinical Densitometry www iscd.org 3. National Osteoporosis Foundation www nof.org Electronically Signed: Zi Holland MD at 14:29 EDT ,
== END | disposition home or self-care (01) ==
LOC: OPBD 13:38
PROVIDERS: PCP Nurse Practitioner Family; Referring Provider Nurse Practitioner Family; Visit Provider Nurse Practitioner Family
DX: Z13.31 Encounter for screening for depression (principal); Z78.0 Asymptomatic menopausal state
CPT/HCPCS: 77063; 77067; 77080

== ENCOUNTER → 2022-03-07 | Outpatient (CLI) | payer MEDICARE, SELFPAY ==
[2022-03-07 11:41] LABS: Albumin, Serum 3.6 g/dL (3.2-5.0); BUN 24 mg/dL (7-18); BUN/Creat Ratio 15.1 RATIO (10-20); Calcium,Total 9.7 mg/dL (8.5-10.1); Chloride 90 mmol/L (98-107); Creatinine, Serum 1.59 mg/dL (0.55-1.02); EST Glomerular Filtration Rate 35 mL/min (>60); Est Glom Filt Rate - Afr Amer 42 mL/min (>60); Glucose 143 mg/dL (74-106); Magnesium 2.3 mg/dL (1.6-2.6); Phosphorus 3.3 mg/dL (2.5-4.9); Potassium 3.7 mmol/L (3.5-5.1); Sodium Level 132 mmol/L (136-145)
== END | disposition home or self-care (01) ==
LOC: LAB 10:17
PROVIDERS: PCP Nurse Practitioner Family; Referring Provider Internal Medicine Nephrology; Visit Provider Internal Medicine Nephrology
DX: N15.8 Other specified renal tubulo-interstitial diseases (principal)
CPT/HCPCS: 36415; 80069; 83735

== ENCOUNTER → 2022-09-13 | Outpatient (CLI) | payer MEDICARE, SELFPAY ==
[2022-09-13 13:53] LABS: Albumin, Serum 3.5 g/dL (3.2-5.0); BUN 13 mg/dL (7-18); Chloride 97 mmol/L (98-107); EST Glomerular Filtration Rate 44 mL/min (>60); Est Glom Filt Rate - Afr Amer 53 mL/min (>60); Glucose 121 mg/dL (74-106); Magnesium 2.7 mg/dL (1.6-2.6); Phosphorus 3.7 mg/dL (2.5-4.9); Potassium 5.2 mmol/L (3.5-5.1); Sodium Level 135 mmol/L (136-145)
== END | disposition home or self-care (01) ==
LOC: LAB 12:04
PROVIDERS: PCP Nurse Practitioner Family; Visit Provider Internal Medicine Nephrology
DX: N15.8 Other specified renal tubulo-interstitial diseases (principal)
CPT/HCPCS: 36415; 80069; 83735

== ENCOUNTER → 2023-03-13 | Outpatient (CLI) | payer MEDICARE, SELFPAY ==
[2023-03-13 12:32] LABS: Hemoglobin 14.6 g/dL (12.0-15.0); Mean Corp Hgb Conc 32.4 g/dL (32-36); Mean Corpuscular Hgb 30.5 pg (27.0-32.0); Mean Corpuscular Volume 93.9 fL (81-99); Mean Platelet Vol. 10.2 fl (6.2-12.0); Platelet Count 225 K/mm3 (150-450); RBC Distribution Width CV 13.3 % (11.6-14.6); RBC Distribution Width SD 46.2 fl (35.1-43.9); Red Blood Count 4.79 M/mm3 (4.2-5.4); White Blood Count 4.6 K/mm3 (4.4-11.0)
[2023-03-13 12:38] LABS: Protein, Urine (Random) 8.7 mg/dL (<11.9); Protein:Creat Ratio 429 mg/g CRE (0-200)
[2023-03-13 12:54] LABS: PTHIN 108.2 pg/mL (18.4-80.1)
[2023-03-13 12:56] LABS: Albumin, Serum 3.6 g/dL (3.2-5.0); BUN 13 mg/dL (7-18); BUN/Creat Ratio 9.9 RATIO (10-20); Calcium,Total 9.3 mg/dL (8.5-10.1); Chloride 99 mmol/L (98-107); Creatinine, Serum 1.31 mg/dL (0.55-1.02); EST Glomerular Filtration Rate 43 mL/min (>60); Est Glom Filt Rate - Afr Amer 52 mL/min (>60); Glucose 87 mg/dL (74-106); Magnesium 2.5 mg/dL (1.6-2.6); Phosphorus 3.1 mg/dL (2.5-4.9); Potassium 4.6 mmol/L (3.5-5.1); Sodium Level 133 mmol/L (136-145)
[2023-03-13 12:58] LABS: Vitamin D,25 Hydroxy 83.1 ng/mL
== END | disposition home or self-care (01) ==
LOC: LAB 11:38
PROVIDERS: PCP Nurse Practitioner Family; Referring Provider Internal Medicine Nephrology; Visit Provider Internal Medicine Nephrology
DX: E55.9 Vitamin D deficiency, unspecified (principal); N25.81 Secondary hyperparathyroidism of renal origin; N18.31 Chronic kidney disease, stage 3a; R80.9 Proteinuria, unspecified
CPT/HCPCS: 36415; 80069; 82306; 82570; 83735; 83970; 84156; 85027

== ENCOUNTER → 2023-09-12 | Outpatient (CLI) | payer MEDICARE, SELFPAY ==
[2023-09-12 12:20] LABS: Absolute Lymphocyte Count 1.11 X10^3/uL (0.83-4.51); Absolute Neutrophil Count 3.4 X10^3/uL (2.0-7.7); Basophil# 0.06 X10^3/uL; Basophil% 1.1 % (0-1); Eosinophils% 3.8 % (0-5); Hematocrit 43.9 % (37-47); Hemoglobin 13.8 g/dL (12.0-15.0); Lymphocyte # 1.11 X10^3/ul (0.83-4.51); Lymphocyte % 20.9 % (19-41); Mean Corp Hgb Conc 31.4 g/dL (32-36); Mean Corpuscular Hgb 29.7 pg (27.0-32.0); Mean Corpuscular Volume 94.6 fL (81-99); Mean Platelet Vol. 9.8 fl (6.2-12.0); Monocyte# 0.49 X10^3/uL; Monocyte% 9.2 % (0-10); NRBC Flagged by Analyzer 0 % (0-5); Neutrophil # 3.43 X10^3/uL (2.7-7.7); Neutrophil % 64.4 % (47-70); Platelet Count 257 K/mm3 (150-450); RBC Distribution Width CV 13.6 % (11.6-14.6); RBC Distribution Width SD 47.8 fl (35.1-43.9); Red Blood Count 4.64 M/mm3 (4.2-5.4); White Blood Count 5.3 K/mm3 (4.4-11.0)
[2023-09-12 12:33] LABS: Protein, Urine (Random) < 6.0 mg/dL (<11.9); Protein:Creat Ratio 400 mg/g CRE (0-200)
[2023-09-12 12:51] LABS: PTHIN 102.4 pg/mL (18.4-80.1)
[2023-09-12 12:59] LABS: Albumin, Serum 3.6 g/dL (3.2-5.0); BUN 11 mg/dL (7-18); BUN/Creat Ratio 10.2 RATIO (10-20); Calcium,Total 9.1 mg/dL (8.5-10.1); Chloride 102 mmol/L (98-107); Creatinine, Serum 1.08 mg/dL (0.55-1.02); EST Glomerular Filtration Rate 54 mL/min (>60); Est Glom Filt Rate - Afr Amer 65 mL/min (>60); Glucose 96 mg/dL (74-106); Magnesium 2.5 mg/dL (1.6-2.6); Phosphorus 2.8 mg/dL (2.5-4.9); Potassium 4.4 mmol/L (3.5-5.1); Sodium Level 132 mmol/L (136-145)
--- OUTSIDE RECORDS SUMMARY | 2023-09-12 15:02 | XMS RPT_ITS | CCD ---
Author Name Unknown Address [address] [place] [address] Organization [facility] Care Team Providers Care Cupola Hoist Operator Name Role Phone TAD PRATER Admitting Unavailable PRATERMARICHUYTAD J Attending Unavailable KENRICK PRATERT J Primary Care Unavailable KENRICK PRATERT J Consulting Unavailable PROVIDER, UNKNOWN Consulting Unavailable PROVIDER, UNKNOWN Consulting Unavailable PROVIDER, UNKNOWN Consulting Unavailable BAKHOUS, AZIZ Admitting Unavailable BAKHOUS, AZIZ Attending Unavailable BAKHOUS, AZIZ Primary Care Unavailable MALLIKA, SUSIE Consulting Unavailable PROVIDER, UNKNOWN Consulting Unavailable BAKHOUS, AZIZ Admitting Unavailable BAKHOUS, AZIZ Attending Unavailable BAKHOUS, AZIZ Primary Care Unavailable MALLIKA, SUSIE Consulting Unavailable PROVIDER, UNKNOWN Consulting Unavailable ASCENCION KIM APRN, CNP Primary Care [facility] ROSCOE ALTAF CHRISTOPHER UnavailASCENCION Wynn Primary Care Unavailable ASCENCION MACARIO Primary Care Unavailable ASCENCION MACARIO Attending Unavailable ASCENCION MACARIO Primary Care Unavailable ASCENCION MACARIO Attending Unavailable ASCENCION MACARIO Attending Unavailable AMIRAH, ASCENCION Primary Care Unavailable Allergies Allergy Classification Reported Allergen(s) Allergy Type Date of Onset Reaction(s) Facility (6 sources) heparin; Translations: [heparin containing compounds] Drug Allergy Eruption of skin (disorder) [facility] Work Phone: (6 sources) Triamcinolone; Translations: [triamcinolone topical] Drug Allergy Eruption of skin (disorder) [facility] Work Phone: Medications Current Medications Medication Drug Class(es) Dates Sig (Normalized) Sig (Original) alendronic acid 70 mg oral tablet (5 sources) Bisphosphonate Start: 11-21-2022 alendronate 70 mg oral tablet Dose : 70 mg = 1 tab(s), Oral, qWeek, # 12 tab(s), 1 Refill(s), Pharmacy: [id number], 159, cm, 11/21/22 9:20:00 EDT, Height, kg, 11/21/22 9:20:00 EDT, Dosing Weight Start Date: 11/21/22 Status: Ordered Problems Active Problems Problem Classification Problem Date Documented Da te Episodic/Chronic Allergic reactions (5 sources) Contact dermatitis 03-07-2022 Episodic Chronic kidney disease (8 sources) Chronic kidney disease; Translations: [Chronic kidney disease stage 3] Onset: 07-09-2022 04-20-2019 Chronic Chronic kidney disease (2 sources) Chronic kidney disease; Translations: [Chronic kidney disease, stage 3 unspecified] Onset: 05-15-2023 Deficiency and other anemia (5 sources) Anemia of chronic disease 04-20-2019 Chronic Deficiency and other anemia (2 sources) Anemia in other chronic diseases classified elsewhere; Translations: [Anemia in other chronic diseases classified elsewhere] Onset: 11-14-2022 Chronic Deficiency and other anemia (1 source) Anemia 11-21-2022 Episodic Disorders of lipid metabolism (4 sources) Hypercholesterolemi a; Translations: [Pure hypercholesterolemi a, unspecified] Onset: 11-14-2022 11-14-2022 Chronic Fluid and electrolyte disorders (12 sources) Chronic hypokalemia; Translations: [Chronic hyponatremia] 04-20-2019 Episodic Nutritional deficiencies (8 sources) Vitamin D deficiency; Translations: [Vitamin D deficiency, unspecified] Onset: 05-15-2023 04-20-2019 Chronic Osteoporosis (5 sources) Osteoporosis 12-20-2021 Chronic Other circulatory disease (6 sources) Low blood pressure 12-03-2021 Episodic Other diseases of kidney and ureters (6 sources) 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 Past or Other Problems Problem Classification Problem Date Documented Date Episodic/Chronic Genitourinary symptoms and ill-defined conditions (2 sources) Unspecified symptoms and signs involving the genitourinary system; Translations: [Unspecified symptoms and signs involving the genitourinary system] Onset: 07-09-2022 Episodic Other circulatory disease (2 sources) Hypotension, unspecified; Translations: [Hypotension, unspecified] Onset: 07-09-2022 Episodic Unclassified (1 source) Emergency use of U07; Translations: [Emergency use of U07] Onset: 07-09-2022 Results Test Name Value Interpretation Reference Range Facil ity Encounters Encounter Date Encounter Type Care Provider Facility Start: 05-15-2023 End: 05-20-2023 ambulatory ASCENCION MACARIO Facility:B Start: 12-02-2022 End: 12-03-2022 ambulatory ASCENCION MACARIO Facility:B Start: 12-02-2022 End: 12-02-2022 Patient encounter procedure ASCENCION ESPINOSAPKINS GLASS FINISHER - IRRIGATOR VALVE PIPE [facility] Start: 11-14-2022 End: 11-19-2022 ambulatory ASCENCION MACARIO Facility:B Start: 11-14-2022 End: 11-18-2022 Outreach Lab ASCENCION MACARIO [employer]ASS FIN[employer]ER - [employer] P[employer] [facility] Start: 07-09-2022 End: 07-14-2022 ambulatory ALTAF TAYLOR GLASS FIN[employer]ATOR [employer] PIPE Facility:B Start: 07-09-2022 End: 07-13-2022 Outreach Lab ALTAF TAYLOR [employer] [facility] Start: 05-09-2022 End: 05-13-2022 Outreach Lab ASCENCION Raoms AMIRAH GLASS FINISHER - IRRIGATOR [employer] [facility] Start: 05-09-2022 End: 05-13-2022 Outreach Lab ASCENCION Ramos AMIRAH GLASS FINISHER - IRR[employer]ATOR [employer] [facility] Start: 12-03-2021 End: 12-07-2021 Outreach Lab ASCENCION ESPINOSAPKINS [employer]ASS FINISHER - [employer] [facility] Start: 04-05-2019 End: 04-05-2019 Patient encounter procedure [facility] Start: 11-11-2018 Encounter for gynecological examination (general) (routine) without abnormal findings TAD PRATER [facility] Start: 11-11-2018 Patient encounter procedure TAD ROGERSADDEN [facility] Start: 09-03-2018 End: 09-03-2018 Patient encounter procedure [facility] Procedures Date Procedure Procedure Detail Performing Clinician Start: 04-05-2019 Urinalysis TAD ARMAS Payers Date Payer Category Payer Unknown [id number] 1955 Unknown [id number] [id number] 1955 Unknown [id number] [id number] 1955 Unknown [id number] [id number] [id number] 1955 Unknown [id number] 2.16.8 [id number] 1955 Unknown [id number] 2.16.8 [id number] 1955 Unknown [id number] 2.16.8 [id number] 1955 Unknown [id number] [id number] Unknown [id number] Unknown [id number] Social History Date Type Detail Facility Start: 04-20-2019 Tobacco smoking status Never s moked tobacco (finding) [facility] Clinical Note 07-12-2022 Note Date & Type Note Facility 07-12-2022 Note . MICRO - Microbiology PROCEDURE: Urine Culture [*1] SOURCE: Urine, Clean Catch BODY SITE: COLLECTED DATE/TIME: 07/09/2022 17:46 EST RECEIVED DATE/TIME: 07/10/2022 17:05 EST START DATE/TIME: 07/10/2022 17:05 EST FREE TEXT SOURCE: FINAL REPORTS Final Report [] Verified Date/Time/Personnel: 07/12/2022 08:02 EST No growth at 48 hours. PRELIMINARY REPORTS Preliminary Report [] Verified Date/Time/Personnel: 07/11/2022 11:02 EST No growth to date Performing Locations *1: This test was performed at: [facility], [address] [place] [address], [facility] , [facility] ([place]) Evaluation + Plan note Laboratory Note Date & Type Note Facility Evaluation + Plan note Future Appointments Appointment Date:12/20/2021 11:00:00 AM Scheduled Provider:ASCENCION MACARIO APRN, CNP Location:[facility] Appointment Type:PC OV Appointment Date:02/28/2022 10:45:00 AM Scheduled Provider: Location:[facility] Appointment Type:PC Nurse Lab Appointment Date:03/07/2022 11:20:00 AM Scheduled Provider:ASCENCION MACARIO APRN, CNP Location:[facility] Appointment Type:PC OV Follow Up Appointment Date:05/09/2022 10:00:00 AM Scheduled Provider: Location:[facility] Appointment Type:PC Nurse Lab Appointment Date:05/17/2022 11:20:00 AM Scheduled Provider:ASCENCION MACARIO APRN, CNP Location:[facility] Appointment Type:PC OV Follow Up Future Scheduled TestsRenin, Plasma 05/15/22Iron Level 05/15/22Thyroid Stimulating Hormone 03/08/22Thyroid Stimulating Hormone 05/15/22Free T4 03/08/22Free T4 05/15/22Complete Blood Count 05/15/22Free T3 05/15/22Lipid Profile 05/15/22PTH, Intact 05/15/22Vitamin D Level 05/15/22Complete Metabolic Panel 05/15/22TIBC 05/15/22 [facility] Evaluation + Plan note Laboratory Note Date & Type Note Facility Evaluation + Plan note Future Appointments Appointment Date:05/17/2022 09:20:00 AM Scheduled Provider:ASCENCION MACARIO APRN - RENÉ Location:[facility] Appointment Type:PC OV Follow Up Future Scheduled TestsRenin, Plasma 09/07/22Thyroid Stimulating Hormone 09/07/22Thyroid Stimulating Hormone 03/08/22Free T4 09/07/22Free T4 03/08/22Complete Blood Count 09/07/22Microalbumin Level Urine 09/07/22PTH, Intact 09/07/22Vitamin D Level 09/07/22Complete Metabolic Panel 09/07/22 [facility] Evaluation + Plan note Laboratory Note Date & Type Note Facility Evaluation + Plan note Future Appointments Appointment Date:11/14/2022 10:00:00 AM Scheduled Provider: Location:[facility] Appointment Type:PC Nurse Lab Appointment Date:11/21/2022 09:20:00 AM Scheduled Provider:ASCENCION MACARIO APRN, CNP Location:[facility] Appointment Type: OV Follow Up Future Scheduled TestsRenin, Plasma 09/07/22Renin, Plasma 11/15/22Aldosterone 05/17/22Iron Level 11/15/22Magnesium Level 05/17/22Thyroid Stimulating Hormone 09/07/22Thyroid Stimulating Hormone 03/08/22Thyroid Stimulating Hormone 11/15/22Free T4 09/07/22Free T4 03/08/22Free T4 11/15/22Complete Blood Count 09/07/22Complete Blood Count 11/15/22Microalbumin Level Urine 09/07/22Microalbumin Level Urine 11/15/22PTH, Intact 09/07/22PTH, Intact 11/15/22Vitamin D Level 09/07/22Vitamin D Level 11/15/22Complete Metabolic Panel 09/07/22Complete Metabolic Panel 11/15/22TIBC 11/15/22 [facility] Evaluation + Plan note Laboratory Note Date & Type Note Facility Evaluation + Plan note Future Appointments Appointment Date:11/21/2022 09:20:00 AM Scheduled Provider:AMIRAH, ASCENCION D GLASS FINISHER - IRRIGATOR VAL[employer] PIPE Location:[facility] Appointment Type:PC OV Follow Up Future Scheduled TestsRenin, Plasma 09/07/22Aldosterone 05/17/22Magnesium Level 05/17/22Thyroid Stimulating Hormone 09/07/22Thyroid Stimulating Hormone 03/08/22Fr T4 09/07/22Free T4 03/08/22Complete Blood Count 09/07/22Microalbumin Level Urine 09/07/22Microalbumin Level Urine 11/15/22PTH, Intact 09/07/22Vitamin D Level 09/07/22Complete Metabolic Panel 09/07/22 [facility] Evaluation + Plan note Laboratory Note Date & Type Note Facility Evaluation + Plan note Future Appointments Appointment Date:05/23/2023 10:00:00 AM Scheduled Provider:ASCENCION MACARIO APRN - IRRIGATOR VALVE PIPE Location:[facility] Appointment Type:PC OV Follow Up Future Scheduled TestsRenin, Plasma 09/07/22Renin, Plasma 05/23/23Aldosterone 05/17/22Magnesium Level 05/17/22Thyroid Stimulating Hormone 09/07/22Thyroid Stimulating Hormone 03/08/22Thyroid Stimulating Hormone 05/23/23Fr T4 09/07/22Free T4 03/08/22Free T4 05/23/23Complete Blood Count 09/07/22Complete Blood Count 05/23/23Lipid Profile 05/23/23Albumin/Creatinine Ratio, Random Urine 05/23/23Microalbumin Level Urine 09/07/22Microalbumin Level Urine 11/15/22PTH, Intact 09/07/22PTH, Intact 05/23/23Vitamin D Level 09/07/22Vitamin D Level 05/23/23Complete Metabolic Panel 09/07/22Complete Metabolic Panel 05/23/23 [facility] Hospital course Narrative Note Date & Type Note Facility Hospital course Narrative No data available for this section [facility] Hospital Discharge instructions Note Date & Type Note Facility Hospital Discharge instructions No data available for this section [facility] Progress note Note Date & Type Note Facility Progress note No data available for this section [facility] Summary Purpose Family History No Family History Records FoundNo Family History Records FoundNo Family History Records Found Advance Directives No Advanced Directives Records FoundNo Advanced Directives Records FoundNo Advanced Directives Records Found Additional Source Comments INFORMATION SOURCE (unrecogn ized section and content) DATE CREATED AUTHOR AUTHOR'S ORGANIZ ATION 04/09/2019 [facility] DATE CREATED AUTHOR AUTHOR'S ORGANIZ ATION 05/21/2023 [facility] ([place] Care Team (unrecognized sect ion and content) Personnel Name: ASCENCION MACARIO APRN, CNP Address: [address] [place] [address] Care Team Personnel Name: ASCENCION MACARIO APRN IRRIGATOR VALVE PIPE Position: P4 Advanced Lightout Examiner Member Role: Primary Care Physician Address: Address: [address] [place] [address]- Care Team Related Persons Name: SHELTON FORBES Care Team Personnel Name: ASCENCION MACARIO APRN - IRRIGATOR VALVE PIPE Position: P4 Advanced Lightout Examiner Member Role: Primary Care Physician Address: Address: [address] [place] [address] Care Team Related Persons Name: SHELTON FORBES Care Team (unrecognized sect ion and content) Care Team Personnel Name: ASCENCION MACARIO APRN - IRRIGATOR VALVE PIPE Position: P4 Advanced Practice Nurse Med Service: Employed Provider Member Role: Primary Care Physician Address: Address: [address] [place] [address] Care Team Related Persons Name: SHELTON FORBES Care Team Personnel Name: ASCENCION MACARIO GLASS FINISHER - IRRIGATOR VALVE PIPE Position: P4 Advanced Practice Nurse Med Service: Employed Provider Member Role: Primary Care Physician Address: Address: [address] [place] [address] Care Team Related Persons Name: SHELTON FORBES Care Team Personnel Name: ASCENCION MACARIO GLASS FINISHER - IRRIGATOR VALVE PIPE Position: P4 Advanced Practice Nurse Member Role: Primary Care Physician Address: Address: [address] [facility] [place] [address]- Care Team Related Persons Name: SHELTON FORBES FOR RECORDS PERTAINING TO PATIENTS WHO ARE OR HAVE BEEN ENROLLED IN A CHEMICAL DEPENDENCY/SUBSTANCEABUSE PROGRAM, SOME INFORMATION MAY BE OMITTED. This clinical summary was aggregated from multiple sources. Caution should be exercised in using it in the provision of clinical care. This summary normalizes information from multiple sources, and as a consequence, information in this document may materially change the coding, format and clinical context of patient data. In addition, data may be omitted in some cases. CLINICAL DECISIONS SHOULD BE BASED ON THE PRIMARY CLINICAL RECORDS. [facility]. provides no warranty or guarantee of the accuracy or completeness of information in this document.
== END | disposition home or self-care (01) ==
LOC: LAB 11:51
PROVIDERS: PCP Nurse Practitioner Family; Referring Provider Nurse Practitioner Adult Health; Visit Provider Nurse Practitioner Adult Health
DX: N18.31 Chronic kidney disease, stage 3a (principal); N25.81 Secondary hyperparathyroidism of renal origin; E55.9 Vitamin D deficiency, unspecified; R80.9 Proteinuria, unspecified
CPT/HCPCS: 36415; 80069; 82306; 82570; 83735; 83970; 84156; 85025

== ENCOUNTER → 2024-09-09 | Outpatient (CLI) | payer MEDICARE, SELFPAY ==
[2024-09-09 12:23] LABS: Albumin, Serum 3.7 g/dL (3.2-5.0); BUN 11 mg/dL (7-18); BUN/Creat Ratio 9.5 RATIO (10-20); Calcium,Total 9.5 mg/dL (8.5-10.1); Chloride 104 mmol/L (98-107); Creatinine, Serum 1.16 mg/dL (0.55-1.02); EST Glomerular Filtration Rate 49 mL/min (>60); Est Glom Filt Rate - Afr Amer 60 mL/min (>60); Glucose 121 mg/dL (74-106); Magnesium 2.6 mg/dL (1.6-2.6); Phosphorus 2.8 mg/dL (2.5-4.9); Potassium 4.5 mmol/L (3.5-5.1); Sodium Level 138 mmol/L (136-145)
== END | disposition home or self-care (01) ==
LOC: LAB 11:13
PROVIDERS: PCP Nurse Practitioner Family; Referring Provider Internal Medicine Nephrology; Visit Provider Internal Medicine Nephrology
DX: N18.31 Chronic kidney disease, stage 3a (principal); E83.42 Hypomagnesemia
CPT/HCPCS: 36415; 80069; 83735